=== PATIENT | female | born 1980 | race Caucasian/White ===

== ENCOUNTER 2016-08-30 07:43 | Emergency (ER) | payer BC ==
[2016-08-30] MEDS ORDERED: Sodium Chloride 0.9% 2.5 ML Syringe FLUSH PRN (07:53)
[2016-08-30] MEDS ORDERED: Alum Hydrox/Mag Hydrox/Simeth 15 ML, Metoclopramide 5 MG, Lidocaine 2% 5 ML PO ONE ×3 (07:53)
[2016-08-30] MEDS ORDERED: Sodium Chloride 0.9% 10 ML Syringe FLUSH PRN (07:53)
--- NOTE | 2016-08-30 07:53 | EDM.PDOC ---
ED HPI GENERAL MEDICAL PROBLEM - General Stated Complaint: STOMACH PAINS Time Seen by Provider: 08/30/16 07:50 - History of Present Illness INITIAL COMMENTS - FREE TEXT/NARRATIVE: HISTORY AND PHYSICAL: History of present illness: Patient 35-year-old female no significant past medical history or sensory concern of acute onset upper abdominal pain started 5 hours prior to arrival to the no vomiting no diarrhea no shortness of breath no fever chills she denies prior surgery denies any medications. Patient denies trauma. Denies vaginal discharge or irregular bleeding or urinary symptoms Review of systems: As per history of present illness and below otherwise all systems reviewed and negative. Past medical history: As per history of present illness and as reviewed below otherwise noncontributory. Surgical history: As per history of present illness and as reviewed below otherwise noncontributory. Social history: No reported history of drug or alcohol abuse. Family history: As per history of present illness and as reviewed below otherwise noncontributory. Physical exam: HEENT: Atraumatic, normocephalic, pupils reactive, negative for conjunctival pallor or scleral icterus, mucous membranes moist, throat clear, neck supple, nontender, trachea midline. Lungs: Clear to auscultation, breath sounds equal bilaterally, chest nontender. Heart: S1S2, regular, negative for clicks, rubs, or JVD. Abdomen: Soft, nondistended, no localized tenderness no rebound no guarding Negative for masses or hepatosplenomegaly. Negative for costovertebral tenderness. Pelvis: Stable nontender. Genitourinary: Deferred. Rectal: Deferred. Extremities: Atraumatic, negative for cords or calf pain. Neurovascular unremarkable. Neuro: Awake, alert, oriented. Cranial nerves II through XII unremarkable. Cerebellum unremarkable. Motor and sensory unremarkable throughout. Exam nonfocal. Diagnostics: CBC CMP lipase UA hCG EKG CT abdomen and pelvis chest x-ray Therapeutics: GI cocktail Impression: #1 abdominal pain Definitive disposition and diagnosis as appropriate pending reevaluation and review of above. - Related Data Allergies Allergy/AdvReac Type Severity Reaction Status Date / Time Penicillins Allergy Shortness Verified 08/30/16 07:57 of Breath Home Meds: Home Meds Hydrocodone/Acetaminophen [Hydrocodon-Acetaminophen 5-325] 1 each PO QID PRN [History] Social & Family History - Tobacco Use Smoking Status *Q: Current Some Day Smoker Years of Tobacco use: 15 Used Tobacco, but Quit: No - Alcohol Use Days Per Week of Alcohol Use: 1 Number of Drinks Per Day: 1 Total Drinks Per Week: 1 - Recreational Drug Use Recreational Drug Use: No ED ROS GENERAL - Review of Systems Review Of Systems: ROS reveals no pertinent complaints other than HPI. ED EXAM, GENERAL - Physical Exam Exam: See Below (See dictation) Course - Vital Signs Last Recorded V/S: Last Vital Signs Temp 36.3 C 08/30/16 07:57 Pulse 79 08/30/16 11:34 Resp 16 08/30/16 11:34 BP 132/79 08/30/16 11:34 Pulse Ox 98 08/30/16 11:34 - Orders/Labs/Meds Orders: Active Orders 24 hr Category Date Time Status EKG Documentation Completion [RC] STAT Care 08/30/16 07:55 Active Abdomen Ltd [US] Stat Exams 08/30/16 10:16 Taken Abdomen Pelvis w Cont [CT] Stat Exams 08/30/16 07:53 Taken Chest 1V Frontal [CR] Stat Exams 08/30/16 07:55 Taken Sodium Chloride 0.9% [Saline Flush] Med 08/30/16 07:53 Active 10 ml FLUSH ASDIRECTED PRN Sodium Chloride 0.9% [Saline Flush] Med 08/30/16 07:53 Active 2.5 ml FLUSH ASDIRECTED PRN Saline Lock Insert [OM.PC] Stat Oth 08/30/16 07:53 Ordered Medication Orders Sodium Chloride (Saline Flush) 10 ml FLUSH ASDIRECTED PRN PRN Reason: Keep Vein Open Last Admin: 08/30/16 08:53 Dose: 10 ml Sodium Chloride (Saline Flush) 2.5 ml FLUSH ASDIRECTED PRN PRN Reason: Keep Vein Open Labs: Laboratory Tests 08/30/16 08/30/16 08/30/16 Range/Units 07:53 07:53 08:07 WBC 9.63 (4.0-11.0) K/uL RBC 4.27 L (4.30-5.90) M/uL Hgb 13.4 (12.0-16.0) g/dL Hct 38.9 (36.0-46.0) % MCV 91.1 (80.0-98.0) fL MCH 31.4 (27.0-32.0) pg MCHC 34.4 (31.0-37.0) g/dL RDW Std Deviation 43.5 (28.0-62.0) fl RDW Coeff of Jaylen 13 (11.0-15.0) % Plt Count 236 (150-400) K/uL MPV 10.40 (7.40-12.00) fL Neut % (Auto) 55.3 (48.0-80.0) % Lymph % (Auto) 31.5 (16.0-40.0) % [place] % (Auto) 8.4 (0.0-15.0) % Eos % (Auto) 4.4 (0.0-7.0) % Baso % (Auto) 0.4 (0.0-1.5) % Neut # (Auto) 5.3 (1.4-5.7) K/uL Lymph # (Auto) 3.0 H (0.6-2.4) K/uL [place] # (Auto) 0.8 (0.0-0.8) K/uL Eos # (Auto) 0.4 (0.0-0.7) K/uL Baso # (Auto) 0.0 (0.0-0.1) K/uL Nucleated RBC % 0.0 /100WBC Nucleated RBCs # 0 K/uL Sodium (136-146) mmol/L Potassium (3.5-5.1) mmol/L Chloride (98-110) mmol/L Carbon Dioxide (21-31) mmol/L BUN (6.0-23.0) mg/dL Creatinine (0.6-1.5) mg/dL Est Cr Clr Drug Dosing mL/min Estimated GFR (MDRD) ml/min Glucose (60-110) mg/dL Calcium (8.8-10.8) mg/dL Total Bilirubin (0.1-1.5) mg/dL AST (5-40) IU/L ALT (8-54) IU/L Alkaline Phosphatase (40-150) Total Protein (6.0-8.0) g/dL Albumin (3.5-5.0) g/dL Globulin (2.0-3.5) g/dL Albumin/Globulin Ratio (1.3-2.8) Lipase (7-80) U/L Urine Color YELLOW Urine Appearance CLEAR Urine pH 5.5 (5.0-8.0) Ur Specific [place] 1.025 (1.001-1.035) Urine Protein NEGATIVE (NEGATIVE) mg/dL Urine Glucose (UA) NEGATIVE (NEGATIVE) mg/dL Urine Ketones NEGATIVE (NEGATIVE) mg/dL Urine Occult Blood SMALL H (NEGATIVE) Urine Nitrite NEGATIVE (NEGATIVE) Urine Bilirubin NEGATIVE (NEGATIVE) Urine Urobilinogen 0.2 (<2.0) EU/dL Ur Leukocyte Esterase SMALL (NEGATIVE) Urine RBC 0-2 (0-2/HPF) Urine WBC 3-5 (0-5/HPF) Ur Epithelial Cells MANY (NONE-FEW) Urine Bacteria FEW (NEGATIVE) Urine Mucus LIGHT (NONE-MOD) Urine HCG, Qual NEGATIVE (NEGATIVE) 08/30/16 Range/Units 08:07 WBC (4.0-11.0) K/uL RBC (4.30-5.90) M/uL Hgb (12.0-16.0) g/dL Hct (36.0-46.0) % MCV (80.0-98.0) fL MCH (27.0-32.0) pg MCHC (31.0-37.0) g/dL RDW Std Deviation (28.0-62.0) fl RDW Coeff of Jaylen (11.0-15.0) % Plt Count (150-400) K/uL MPV (7.40-12.00) fL Neut % (Auto) (48.0-80.0) % Lymph % (Auto) (16.0-40.0) % [place] % (Auto) (0.0-15.0) % Eos % (Auto) (0.0-7.0) % Baso % (Auto) (0.0-1.5) % Neut # (Auto) (1.4-5.7) K/uL Lymph # (Auto) (0.6-2.4) K/uL [place] # (Auto) (0.0-0.8) K/uL Eos # (Auto) (0.0-0.7) K/uL Baso # (Auto) (0.0-0.1) K/uL Nucleated RBC % /100WBC Nucleated RBCs # K/uL Sodium 141 (136-146) mmol/L Potassium 3.6 (3.5-5.1) mmol/L Chloride 108 (98-110) mmol/L Carbon Dioxide 26 (21-31) mmol/L BUN 14 (6.0-23.0) mg/dL Creatinine 0.9 (0.6-1.5) mg/dL Est Cr Clr Drug Dosing 68.35 mL/min Estimated GFR (MDRD) > 60.0 ml/min Glucose 116 H (60-110) mg/dL Calcium 9.0 (8.8-10.8) mg/dL Total Bilirubin 0.4 (0.1-1.5) mg/dL AST 20 (5-40) IU/L ALT 36 (8-54) IU/L Alkaline Phosphatase 72 (40-150) Total Protein 6.9 (6.0-8.0) g/dL Albumin 3.9 (3.5-5.0) g/dL Globulin 3.0 (2.0-3.5) g/dL Albumin/Globulin Ratio 1.3 (1.3-2.8) Lipase 26 (7-80) U/L Urine Color Urine Appearance Urine pH (5.0-8.0) Ur Specific [place] (1.001-1.035) Urine Protein (NEGATIVE) mg/dL Urine Glucose (UA) (NEGATIVE) mg/dL Urine Ketones (NEGATIVE) mg/dL Urine Occult Blood (NEGATIVE) Urine Nitrite (NEGATIVE) Urine Bilirubin (NEGATIVE) Urine Urobilinogen (<2.0) EU/dL Ur Leukocyte Esterase (NEGATIVE) Urine RBC (0-2/HPF) Urine WBC (0-5/HPF) Ur Epithelial Cells (NONE-FEW) Urine Bacteria (NEGATIVE) Urine Mucus (NONE-MOD) Urine HCG, Qual (NEGATIVE) Meds: Medications Generic Name Dose Route Start Last Admin Trade Name Freq PRN Reason Stop Dose Admin Sodium Chloride 10 ml 08/30/16 07:53 08/30/16 08:53 Saline Flush FLUSH 10 ml ASDIRECTED PRN Administration Keep Vein Open Sodium Chloride 2.5 ml 08/30/16 07:53 Saline Flush FLUSH ASDIRECTED PRN Keep Vein Open Discontinued Medications Generic Name Dose Route Start Last Admin Trade Name Freq PRN Reason Stop Dose Admin Al Hydroxide/Mg Hydroxide 15 0 ml 08/30/16 07:53 07/15/17 08:03 ml/ Metoclopramide HCl 5 mg/ PO 08/30/16 07:54 1 each Lidocaine HCl 5 ml ONETIME ONE Administration Iopamidol 100 ml 08/30/16 09:15 Isovue-370 (76%) IVPUSH 08/30/16 09:16 ONETIME STA Ketorolac Tromethamine 30 mg 08/30/16 08:33 08/30/16 08:48 Toradol IVPUSH 08/30/16 08:34 30 mg ONETIME ONE Administration Departure - Departure Time of Disposition: 11:40 Disposition: Home, Self-Care 01 Condition: Good Clinical Impression: Cholelithiasis, Biliary colic - Discharge Information Referrals: Taylor Jefferson DO [Primary Care Provider] - Additional Instructions: The following information is given to patients seen in the emergency department who are being discharged to home. This information is to outline your options for follow-up care. We provide all patients seen in our emergency department with a follow-up referral. The need for follow-up, as well as the timing and circumstances, are variable depending upon the specifics of your emergency department visit. If you don't have a primary care physician on staff, we will provide you with a referral. We always advise you to contact your personal physician following an emergency department visit to inform them of the circumstance of the visit and for follow-up with them and/or the need for any referrals to a consulting specialist. The emergency department will also refer you to a specialist when appropriate. This referral assures that you have the opportunity for followup care with a specialist. All of these measure are taken in an effort to provide you with optimal care, which includes your followup. Under all circumstances we always encourage you to contact your private physician who remains a resource for coordinating your care. When calling for followup care, please make the office aware that this follow-up is from your recent emergency room visit. If for any reason you are refused follow-up, please contact the [facility] emergency department at and asked to speak to the emergency department charge nurse. [facility] Specialty Care - General Surgery Professional Building [address] [place] [address], [address] [place] [address] Diet as discussed hydrocodone as prescribed call schedule routine appointment with primary medical doctor in general surgery above return as needed as discussed] - My Orders Last 24 Hours: My Active Orders 08/30/16 07:53 Abdomen Pelvis w Cont [CT] Stat Sodium Chloride 0.9% [Saline Flush] 10 ml FLUSH ASDIRECTED PRN Sodium Chloride 0.9% [Saline Flush] 2.5 ml FLUSH ASDIRECTED PRN Saline Lock Insert [OM.PC] Stat 08/30/16 07:55 EKG Documentation Completion [RC] STAT Chest 1V Frontal [CR] Stat 08/30/16 10:16 Abdomen Ltd [US] Stat - Assessment/Plan Last 24 Hours: My Active Orders 08/30/16 07:53 Abdomen Pelvis w Cont [CT] Stat Sodium Chloride 0.9% [Saline Flush] 10 ml FLUSH ASDIRECTED PRN Sodium Chloride 0.9% [Saline Flush] 2.5 ml FLUSH ASDIRECTED PRN Saline Lock Insert [OM.PC] Stat 08/30/16 07:55 EKG Documentation Completion [RC] STAT Chest 1V Frontal [CR] Stat 08/30/16 10:16 Abdomen Ltd [US] Stat
[2016-08-30 08:30] LABS: CHLORIDE,CL 108 mmol/L (98-110); SODIUM,NA 141 mmol/L (136-146)
[2016-08-30] MEDS ORDERED: Ketorolac 30 MG/ML SDV IVPUSH ONE (08:33)
[2016-08-30] MEDS ORDERED: Iopamidol 755 Mg/ML 100 ML Bottle IVPUSH STA (09:15)
[2016-08-30 12:37] VITALS: BP 136/85
--- NOTE | 2016-09-01 11:17 | CT ---
EXAM DATE: 08/30/16 PATIENT'S AGE: 35 Patient: GRETTA MACIAS Facility: [place], [place] Site . Site : 1980 Study: CT Abdomen/Pelvis [id number]/15/2017 9:49:24 AM Ordering Physician: Yuriy Mendiola Final Report: INDICATION: Abdominal pain and nausea. Technique: CT scan of the abdomen and pelvis. IV contrast. Findings: Lung bases are clear. Cholesterol gallstones are present. Small nonobstructing calcification in the lower pole right kidney. Axial series image 73. No hydronephrosis. Left kidney unremarkable. The bladder is unremarkable. Uterus is normal size. IUD is present. Bilateral ovarian cysts. Right ovarian cyst 2.5 cm. Left ovarian cyst 5.2 cm. The left ovarian cyst may have an internal daughter cyst. No free fluid in the pelvis. Moderate amount of retained colonic stool. Spleen, pancreas, and adrenal glands appear normal. The lung bases are clear. There is moderate lumbar scoliosis that is convex to the left. IMPRESSION: 1. Gallstones. Consider ultrasound evaluation. The bile ducts appear normal caliber. 2. Bilateral ovarian cysts. Consider pelvic ultrasound evaluation. 3. Intrauterine IUD. Please note that all CT scans at this facility use dose modulation, iterative reconstruction, and/or weight-based dosing when appropriate to reduce radiation dose to as low as reasonably achievable. Dictated by Saul Cloud MD @ Aug 30 2016 9:55AM (Electronic Signature) Report Signed by Proxy. MTDD
--- NOTE | 2016-09-01 11:18 | CR ---
EXAM DATE: 08/30/16 PATIENT'S AGE: 35 Patient: GRETTA MACIAS Facility: [place], [place] Site . Site : 1980 Study: XRay Chest [id number]/15/2017 10:12:29 AM Ordering Physician: Yuriy Mendiola Final Report: INDICATION: Cough. Technique: Chest single view. IMPRESSION: Lungs are clear. No pleural effusions or pneumothorax. Heart size is normal. Dictated by Saul Cloud MD @ Aug 30 2016 10:18AM (Electronic Signature) Report Signed by Proxy. [facility]ENTER[facility]
--- NOTE | 2016-09-01 11:19 | US ---
EXAM DATE: 08/30/16 PATIENT'S AGE: 35 Patient: GRETTA MACIAS Facility: [place], [place] Site . Site : 1980 Study: US Abdomen [id number]/15/2017 11:54:25 AM Ordering Physician: Yuriy Mendiola Final Report: HISTORY: Upper abdominal pain. TECHNIQUE: Limited abdominal ultrasound. COMPARISON: CT 08/30/2016. FINDINGS: Pancreas is poorly seen. Liver size and echogenicity are within normal limits. There is no focal liver mass. No intrahepatic or extrahepatic biliary ductal dilatation. The extrahepatic bile duct measures 4 mm which is normal. Gallstones. Gallbladder wall thickness is within normal limits measuring 3 mm. The gallbladder measures under 4 cm luminal diameter. No surrounding fluid. Per the rad technologist, the patient was tender over the gallbladder during scanning. Right kidney appears unremarkable. IMPRESSION: 1. Gallstones without gallbladder wall thickening or pericholecystic fluid. Per the rad technologist, the patient was tender over the gallbladder during scanning. 2. No biliary ductal dilatation. Dictated by Arpit Rivers MD @ 08/30/2016 12:13:40 PM Dictated by: Arpit Rivers MD @ 08/30/2016 12:13:44 (Electronic Signature) Report Signed by Proxy. ROBERTO
== END 2016-08-30 12:34 | disposition home or self-care (01) ==
LOC: MW.ED 07:43
DX: K80.70 Calculus of gallbladder and bile duct without cholecystitis without obstruction (principal); F17.210 Nicotine dependence, cigarettes, uncomplicated; Z88.0 Allergy status to penicillin
CPT/HCPCS: 36415; 71010; 74177; 76705; 80053; 81001; 81025; 83690; 85025; 93005; 96374; 99285; A9270; J1885; 99284

== ENCOUNTER 2016-09-07 11:39 | Emergency (ER) | payer BC ==
[2016-09-07] MEDS ORDERED: Dicyclomine 10 MG Cap PO ONE (11:58)
[2016-09-07] MEDS ORDERED: Ketorolac 60 MG/2 ML SDV IM ONE (11:58)
[2016-09-07] MEDS ORDERED: Ondansetron 4 MG Tab.DIS PO ONE (12:04)
--- NOTE | 2016-09-07 12:04 | EDM.PDOC ---
ED HPI GENERAL MEDICAL PROBLEM - General Chief Complaint: Abdominal Pain Stated Complaint: ABDOMINAL PAIN Time Seen by Provider: 09/07/16 11:44 Source of Information: Reports: Patient History Limitations: Reports: No Limitations - History of Present Illness INITIAL COMMENTS - FREE TEXT/NARRATIVE: History of present illness: [] Review of systems: As per history of present illness and below otherwise all systems reviewed and negative. Patient was diagnosed with cholelithiasis week and a half ago and followed up with Dr. Lynch 2 days ago. Last night she states she ate a salad and 2 hours later her pain started cramping again. Dr. Lynch gave her hydrocodone she took but did not work. She denies any fevers, chills but she has had nausea and vomited twice small amount of spit. Past medical history: As per history of present illness and as reviewed below otherwise noncontributory. Surgical history: As per history of present illness and as reviewed below otherwise noncontributory. Social history: No reported history of drug or alcohol abuse. Family history: As per history of present illness and as reviewed below otherwise noncontributory. Physical exam: General: Well developed, well nourished in NAD HEENT: Atraumatic, normocephalic, pupils reactive, negative for conjunctival pallor or scleral icterus, mucous membranes moist, throat clear, neck supple, nontender, trachea midline. Lungs: Clear to auscultation, breath sounds equal bilaterally, chest nontender. Heart: S1S2, regular, negative for clicks, rubs, or JVD. Abdomen: Soft, nondistended, mild right upper quadrant tenderness no rebound or guarding. Negative for masses or hepatosplenomegaly. Negative for costovertebral tenderness. Pelvis: Stable nontender. Genitourinary: Deferred. Rectal: Deferred. Extremities: Atraumatic, negative for cords or calf pain. Neurovascular unremarkable. Neuro: Awake, alert, oriented. Cranial nerves II through XII unremarkable. Cerebellum unremarkable. Motor and sensory unremarkable throughout. Exam nonfocal. Diagnostics: [] Therapeutics: []Bentyl Toradol Zofran given Impression: []Cholelithiasis Plan: []Bentyl, Zofran for nausea and pain any fatty foods follow-up with surgery as needed Definitive disposition and diagnosis as appropriate pending reevaluation and review of above. Upper Abdomen Pain Score (Numeric/FACES): 7 - Related Data Allergies Allergy/AdvReac Type Severity Reaction Status Date / Time Penicillins Allergy Shortness Verified 09/07/16 11:54 of Breath Home Meds: Home Meds Hydrocodone/Acetaminophen [Hydrocodon-Acetaminophen 5-325] 1 each PO QID PRN [History] Dicyclomine [Bentyl] 20 mg PO TID PRN #20 tab 09/07/16 [Rx] Ondansetron HCl [Zofran] 4 mg PO Q8HR PRN #12 tablet 09/07/16 [Rx] Past Medical History - Infectious Disease History Infectious Disease History: Reports: Chicken Pox - Past Surgical History GI Surgical History: Reports: Appendectomy, Other (See Below) Other GI Surgeries/Procedures: exploratory lap Female Surgical History: Reports: Section Social & Family History - Family History Family Medical History: Noncontributory - Tobacco Use Smoking Status *Q: Current Some Day Smoker Years of Tobacco use: 15 Packs/Tins Daily: 0.3 Used Tobacco, but Quit: No - Caffeine Use Caffeine Use: Reports: None - Alcohol Use Days Per Week of Alcohol Use: 1 Number of Drinks Per Day: 1 Total Drinks Per Week: 1 - Recreational Drug Use Recreational Drug Use: No ED ROS GENERAL - Review of Systems Review Of Systems: See Below (See history of present illness) ED EXAM, GI/ABD - Physical Exam Exam: See Below (See history of present illness) Course - Vital Signs Last Recorded V/S: Last Vital Signs Temp 36.2 C 09/07/16 11:54 Pulse 88 09/07/16 11:54 Resp 18 09/07/16 11:54 BP 141/95 H 09/07/16 11:54 Pulse Ox 98 09/07/16 11:54 - Orders/Labs/Meds Meds: Medications Discontinued Medications Generic Name Dose Route Start Last Admin Trade Name Freq PRN Reason Stop Dose Admin Dicyclomine HCl 10 mg 09/07/16 11:58 Bentyl PO 09/07/16 11:59 ONETIME ONE Ketorolac Tromethamine 60 mg 09/07/16 11:58 Toradol IM 09/07/16 11:59 ONETIME ONE Ondansetron HCl 4 mg 09/07/16 12:04 Zofran Odt PO 09/07/16 12:05 ONETIME ONE Departure - Departure Time of Disposition: 12:10 Disposition: Home, Self-Care 01 Condition: Good Clinical Impression: Cholelithiasis Qualifiers: Cholelithiasis location: gallbladder Cholecystitis presence: without cholecystitis Biliary obstruction: with biliary obstruction Qualified Code(s): K80.21 - Calculus of gallbladder without cholecystitis with obstruction - Discharge Information Prescriptions: Ondansetron HCl [Zofran] 4 mg PO Q8HR PRN #12 tablet PRN Reason: Nausea Dicyclomine [Bentyl] 20 mg PO TID PRN #20 tab PRN Reason: Pain Forms: ED Department Discharge Additional Instructions: The following information is given to patients seen in the emergency department who are being discharged to home. This information is to outline your options for follow-up care. We provide all patients seen in our emergency department with a follow-up referral. The need for follow-up, as well as the timing and circumstances, are variable depending upon the specifics of your emergency department visit. If you don't have a primary care physician on staff, we will provide you with a referral. We always advise you to contact your personal physician following an emergency department visit to inform them of the circumstance of the visit and for follow-up with them and/or the need for any referrals to a consulting specialist. The emergency department will also refer you to a specialist when appropriate. This referral assures that you have the opportunity for follow-up care with a specialist. All of these measure are taken in an effort to provide you with optimal care, which includes your follow-up. Under all circumstances we always encourage you to contact your private physician who remains a resource for coordinating your care. When calling for follow-up care, please make the office aware that this follow-up is from your recent emergency room visit. If for any reason you are refused follow-up, please contact the [facility] Emergency Department at and asked to speak to the emergency department charge nurse. Bentyl for pain and Zofran for nausea not eat any fatty foods as this may worsen her gallbladder pain follow-up with general surgery [facility] Specialty Care - General Surgery Professional Building [address] [place] [address], [address] [place] [address]
[2016-09-07 12:39] VITALS: BP 147/94
== END 2016-09-07 12:38 | disposition home or self-care (01) ==
LOC: MW.ED 11:39
DX: K80.21 Calculus of gallbladder without cholecystitis with obstruction (principal); F17.210 Nicotine dependence, cigarettes, uncomplicated; Z88.0 Allergy status to penicillin; Z90.49 Acquired absence of other specified parts of digestive tract
CPT/HCPCS: 96372; 99284; A9270; J1885

== ENCOUNTER 2016-09-19 07:57 | Day surgery (SDC) | payer BC ==
[~2016-09-19 07:57] MED LIST: Bupivacaine 0.5% 30 ML SDV ONE; Lactated Ringers 1,000 ML IV SCH; ceFAZolin 1 GM Vial ONE; cefOXitin 2 GM in Premix Bag 1 BAG IV ONE
[2016-09-19] MEDS ORDERED: Midazolam 1 MG/ML 2 ML SDV ONE (08:15)
[2016-09-19] MEDS ORDERED: Propofol 200 MG/20 ML SDV ONE (08:15)
[2016-09-19] MEDS ORDERED: fentaNYL 250 MCG/5 ML SDV ONE (08:16)
[2016-09-19] MEDS ORDERED: Dexamethasone 4 MG/ML 5 ML MDV ONE (08:20)
[2016-09-19] MEDS ORDERED: Neostigmine Methylsulfate 1 MG/ML 5 ML Syringe ONE (08:20)
[2016-09-19] MEDS ORDERED: Rocuronium 10 MG/ML 10 ML Syringe ONE (08:20)
[2016-09-19] MEDS ORDERED: Ondansetron 4 MG/2 ML SDV ONE (08:20)
[2016-09-19] MEDS ORDERED: Scopolamine 1.5 MG Transdermal Patch TRDERM PRN (08:32)
--- NOTE | 2016-09-19 08:32 | PCM.PREANE ---
Preanesthetic Assessment - Anesthesia/Transfusion/Family Hx Anesthesia History: Prior Anesthesia Without Reaction Family History of Anesthesia Reaction: No Transfusion History: Prior Transfusion Without Reaction Intubation History: Unknown - Review of Systems General: No Symptoms Pulmonary: No Symptoms Cardiovascular: No Symptoms Gastrointestinal: Other (symptomatic cholelithiasis) Neurological: No Symptoms Other: Reports: None - Physical Assessment O2 Sat by Pulse Oximetry: 99 Respiratory Rate: 16 Vital Signs: Last Vital Signs Temp 36.5 C 09/19/16 08:09 Pulse 76 09/19/16 08:09 Resp 16 09/19/16 08:09 BP 136/83 09/19/16 08:09 Pulse Ox 99 09/19/16 08:09 Height: 1.57 m Weight: 87.8 kg ASA Class: 2 Mental Status: Alert & Oriented x3 Airway Class: Mallampati = 2 Dentition: Reports: Normal Dentition Thyro-Mental Finger Breadths: 3 Mouth Opening Finger Breadths: 2 ROM/Head Extension: Full Lungs: Clear to Auscultation, Normal Respiratory Effort Cardiovascular: Regular Rate, Regular Rhythm - Lab Values: Laboratory Last Values Urine HCG, Qual NEGATIVE (NEGATIVE) 09/19/16 08:01 - Allergies Allergies/Adverse Reactions: Allergies Allergy/AdvReac Type Severity Reaction Status Date / Time Penicillins Allergy Shortness Verified 09/07/16 11:54 of Breath - Blood Blood Available: No - Anesthesia Plan Pre-Op Medication Ordered: None - Acknowledgements Anesthesia Type Planned: General Anesthesia Pt an Appropriate Candidate for the Planned Anesthesia: Yes Alternatives and Risks of Anesthesia Discussed w Pt/Guardian: Yes Pt/Guardian Understands and Agrees with Anesthesia Plan: Yes PreAnesthesia Questionnaire Other HEENT History: wears glasses Gastrointestinal History: Reports: Cholelithiasis Genitourinary History: Reports: None 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: Endocrine/Metabolic History: Reports: Obesity/BMI 30+ Hematologic History: Reports: Blood Transfusion(s) - Infectious Disease History Infectious Disease History: Reports: Chicken Pox - Past Surgical History Head Surgeries/Procedures: Reports: None GI Surgical History: Reports: Appendectomy, Other (See Below) Other GI Surgeries/Procedures: exploratory lap for ruptured appedicitis Female Surgical History: Reports: Section (x2) - SUBSTANCE USE Smoking Status *Q: Current Every Day Smoker Tobacco Use Within Last Twelve Months: Cigarettes (now 1/4 ppd) Days Per Week of Alcohol Use: 1 Number of Drinks Per Day: 1 Total Drinks Per Week: 1 Recreational Drug Use History: No - HOME MEDS Home Medications: Home Meds Hydrocodone/Acetaminophen [Hydrocodon-Acetaminophen 5-325] 1 each PO QID PRN [History] Ondansetron HCl [Zofran] 4 mg PO Q8HR PRN #12 tablet 09/07/16 [Rx] Cetirizine [ZyrTEC] 10 mg PO ASDIRECTED PRN 09/16/16 [History] Dicyclomine [Bentyl] 20 mg PO ASDIRECTED PRN 09/16/16 [History] - CURRENT (IN HOUSE) MEDS Current Meds: Current Medications Lactated Ringer's (Ringers, Lactated) 1,000 mls @ 125 mls/hr IV ASDIRECTED KEMAR Last Admin: 09/19/16 08:14 Dose: 125 mls/hr Discontinued Medications Bupivacaine HCl (Marcaine 0.5%) Confirm Administered Dose 30 ml .ROUTE .STK-MED ONE Stop: 09/19/16 06:56 Cefazolin Sodium (Ancef) Confirm Administered Dose 1 gm .ROUTE .STK-MED ONE Stop: 09/19/16 06:56 Cefazolin Sodium (Ancef) Confirm Administered Dose 1 gm .ROUTE .STK-MED ONE Stop: 09/19/16 07:01 Dexamethasone (Dexamethasone) Confirm Administered Dose 20 mg .ROUTE .STK-MED ONE Stop: 09/19/16 08:21 Fentanyl (Sublimaze) Confirm Administered Dose 250 mcg .ROUTE .STK-MED ONE Stop: 09/19/16 08:17 Glycopyrrolate () Confirm Administered Dose 1 mg .ROUTE .STK-MED ONE Stop: 09/19/16 08:21 Cefoxitin Sodium 2 gm/ Premix 50 mls @ 100 mls/hr IV ONETIME ONE Stop: 09/19/16 07:29 Lidocaine HCl (Xylocaine-Mpf 1%) Confirm Administered Dose 5 ml .ROUTE .STK-MED ONE Stop: 09/19/16 08:21 Midazolam HCl (Versed 1 Mg/Ml) Confirm Administered Dose 2 mg .ROUTE .STK-MED ONE Stop: 09/19/16 08:16 Neostigmine Methylsulfate (Neostigmine) Confirm Administered Dose 5 mg .ROUTE .STK-MED ONE Stop: 09/19/16 08:21 Ondansetron HCl (Zofran) Confirm Administered Dose 4 mg .ROUTE .STK-MED ONE Stop: 09/19/16 08:21 Propofol (Diprivan 20 Ml) Confirm Administered Dose 200 mg .ROUTE .STK-MED ONE Stop: 09/19/16 08:16 Rocuronium [place] (Zemuron) Confirm Administered Dose 100 mg .ROUTE .STK-MED ONE Stop: 09/19/16 08:21
[2016-09-19] MEDS ORDERED: Bupivacaine 0.5% 10 ML SDV ONE (09:31)
[2016-09-19] MEDS ORDERED: Phenylephrine/Normal Saline 100 MCG/ML 10 ML Syringe ONE (10:21)
[2016-09-19] MEDS ORDERED: Ketorolac 30 MG/ML SDV ONE (10:48)
[2016-09-19] MEDS ORDERED: fentaNYL 100 MCG/2 ML SDV ONE (11:02)
[2016-09-19] MEDS ORDERED: Morphine 10 MG/ML Syringe IVPUSH PRN (11:14)
[2016-09-19] MEDS ORDERED: Acetaminophen/HYDROcodone 325-5 MG Tab PO PRN (11:14)
[2016-09-19] MEDS ORDERED: Lactated Ringers 1,000 ML IV SCH (11:15)
[2016-09-19] MEDS ORDERED: HYDROmorphone 1 MG/ML Syringe IVPUSH ONE (11:15)
--- NOTE | 2016-09-19 11:17 | PCM.OPNOTE ---
- General Post-Op/Procedure Note Date of Surgery/Procedure: 09/19/16 Operative Procedure(s): Laparoscopic cholecystectomy Pre Op Diagnosis: Cholelithiasis Post-Op Diagnosis: Same Anesthesia Technique: General ET Tube (ASA II) Primary Surgeon: Ronald Foster Fluid Replacement, Intraop: 1,100 Output, Urine Amount: 100 EBL in mLs: 50 Condition: Good Free Text/Narrative:: Dictation [id number] CPT CODE 28829
[2016-09-19] MEDS ORDERED: HYDROmorphone 2 MG/ML Syringe ONE (11:23)
--- NOTE | 2016-09-19 11:42 | PCM.POSTAN ---
POST ANESTHESIA ASSESSMENT - MENTAL STATUS Mental Status: Alert, Oriented - RESPIRATORY Respiratory Status: Respiratory Rate WNL, Airway Patent, O2 Saturation Stable - CARDIOVASCULAR CV Status: Pulse Rate WNL, Blood Pressure Stable - GASTROINTESTINAL GI Status: No Symptoms - PAIN Pain Score: 2 - POST OP HYDRATION Hydration Status: Adequate & Stable - OBSERVATIONS Free Text/Narrative:: no anesthesia problems
--- NOTE | 2016-09-19 11:42 | OR ---
SURGEON: Ronald Foster M.D. DATE OF PROCEDURE: 09/19/2016 OPERATION PERFORMED: Laparoscopic cholecystectomy. ANESTHESIA: General endotracheal. ASA CLASSIFICATION: II. PREOPERATIVE DIAGNOSIS: Symptomatic cholelithiasis. POSTOPERATIVE DIAGNOSIS: Symptomatic cholelithiasis. ESTIMATED BLOOD LOSS: 50 mL. FLUID REPLACEMENT: 1100 mL of crystalloid. INTRAOPERATIVE URINE OUTPUT: 100 mL. DESCRIPTION OF PROCEDURE: The patient was taken to the operating room, placed on the operating table in the supine position. Time-out was called for appropriate identification of the patient and procedure. Thigh-high TEDs and sequential compression boots were placed. Following satisfactory attainment of general endotracheal anesthesia, a Apple catheter was placed in the patient's urinary bladder. The abdomen was prepped with DuraPrep solution. Sterile drapes were applied. The skin just above the umbilicus was infiltrated with 0.5% Marcaine solution. The skin incision was made and deepened through the subcutaneous tissue obtaining hemostasis with the use of electrocautery. The Veress needle was introduced into the peritoneal cavity. The saline drop test was positive. Carbon dioxide pneumoperitoneum was established with the release set at 13 cm of water. Once we had a satisfactory pneumoperitoneum, under camera vision 12 mm subxiphoid, 5 mm midclavicular, and 5 mm anterior axillary ports were placed. Each incision was preemptively infiltrated with 0.5% Marcaine solution. The patient was now positioned with her head down and rolled to the left. The gallbladder was grasped. The cholecystohepatic triangle was dissected free obtaining a good critical view of both the cystic duct and cystic artery. Each structure was individually hemo-clipped before division with the laparoscopic Metzenbaum scissor. The gallbladder was then dissected away from its bed using electrocautery. A small amount of bile was spilled. The right upper quadrant was irrigated with sterile saline solution. All fluid was aspirated. Minimal oozing was noted from the gallbladder. Once gallbladder was amputated, this was placed in an Endopouch. The bed of the gallbladder was again irrigated with sterile saline solution. Avitene and Surgicel were placed into the bed of the gallbladder. The right hemidiaphragm was then irrigated with 200 mL of saline with 20 mL of 0.5% Marcaine solution. Under camera vision, the Endopouch containing gallbladder and 12 mm port were removed. Again, under camera vision the 5 mm midclavicular, and anterior axillary ports were removed and finally, the supraumbilical camera and port were removed. The wounds were inspected for hemostasis and small bleeding sites were electrocoagulated. The subxiphoid and supraumbilical incisions were closed in 2 layers approximating the subcutaneous tissue with 3-0 Polysorb and the skin with subcuticular 4-0 Monocryl. All wounds were Steri-Stripped and dressed with sterile Tegaderm pads. Sponge, needle, and instrument counts were all correct. The patient tolerated the procedure well. Prior to emergence from anesthesia and extubation, the Apple catheter was removed. Following emergence from anesthesia and extubation, the patient was taken to recovery room in stable condition. FREEDOM SCHULTZ /[id number]
[2016-09-19 13:47] VITALS: BP 119/64
== END 2016-09-19 14:51 | disposition home or self-care (01) ==
LOC: MW.SDS 07:57
PROVIDERS: ATTEND Surgery
PROC: 0FT44ZZ Resection of Gallbladder, Percutaneous Endoscopic Approach (ICD-10-PCS; principal; 2016-09-19)
DX: K80.10 Calculus of gallbladder with chronic cholecystitis without obstruction (principal); F17.210 Nicotine dependence, cigarettes, uncomplicated; E66.9 Obesity, unspecified; Z88.0 Allergy status to penicillin; Z90.49 Acquired absence of other specified parts of digestive tract; Z98.890 Other specified postprocedural states; Z68.35 Body mass index [BMI] 35.0-35.9, adult
CPT/HCPCS: 47562; 81025; A9270; J0690; J1100; J1170; J1885; J2250; J2405; J3010; J7120; 00790; 88304; J2704

== ENCOUNTER 2017-02-21 07:02 | Emergency (ER) | payer BC ==
[2017-02-21] MEDS ORDERED: Ondansetron 4 MG Tab.DIS PO ONE (07:24)
[2017-02-21] MEDS ORDERED: Ketorolac 60 MG/2 ML SDV IM ONE (07:24)
--- NOTE | 2017-02-21 07:26 | EDM.PDOC ---
ED HPI GENERAL MEDICAL PROBLEM - General Chief Complaint: Gastrointestinal Problem Stated Complaint: FLU Time Seen by Provider: 02/21/17 07:08 Source of Information: Reports: Patient History Limitations: Reports: No Limitations - History of Present Illness INITIAL COMMENTS - FREE TEXT/NARRATIVE: History of present illness: []Patient's had one day of cold symptoms with runny nose, sore throat, cough, body aches and vomiting. His vomit approximately 5-6 times since it started 24 hours ago. Denies any diarrhea. Review of systems: As per history of present illness and below otherwise all systems reviewed and negative. Past medical history: As per history of present illness and as reviewed below otherwise noncontributory. Surgical history: As per history of present illness and as reviewed below otherwise noncontributory. Social history: No reported history of drug or alcohol abuse. Family history: As per history of present illness and as reviewed below otherwise noncontributory. Physical exam: General: Well developed, well nourished in NAD HEENT: Atraumatic, normocephalic, pupils reactive, negative for conjunctival pallor or scleral icterus, mucous membranes moist, throat clear, neck supple, nontender, trachea midline. Lungs: Clear to auscultation, breath sounds equal bilaterally, chest nontender. Heart: S1S2, regular, negative for clicks, rubs, or JVD. Abdomen: Soft, nondistended, nontender. Negative for masses or hepatosplenomegaly. Negative for costovertebral tenderness. Pelvis: Stable nontender. Genitourinary: Deferred. Rectal: Deferred. Extremities: Atraumatic, negative for cords or calf pain. Neurovascular unremarkable. Neuro: Awake, alert, oriented. Cranial nerves II through XII unremarkable. Cerebellum unremarkable. Motor and sensory unremarkable throughout. Exam nonfocal. Diagnostics: []Strep and influenza negative Therapeutics: []Zofran Toradol given in the ED Impression: []Viral syndrome Plan: []Tylenol and or Motrin for symptoms follow-up PMD as needed, Zofran for nausea. Return if symptoms worsen or change. Definitive disposition and diagnosis as appropriate pending reevaluation and review of above. 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: Endocrine/Metabolic History: Reports: Obesity/BMI 30+ Hematologic History: Reports: Blood Transfusion(s) - Infectious Disease History Infectious Disease History: Reports: Chicken Pox - Past Surgical History Head Surgeries/Procedures: Reports: None GI Surgical History: Reports: Appendectomy, Other (See Below) Other GI Surgeries/Procedures: exploratory lap for ruptured appedicitis Female Surgical History: Reports: Section (x2) Social & Family History - Family History Family Medical History: Noncontributory - Tobacco Use Smoking Status *Q: Current Every Day Smoker Years of Tobacco use: 15 Packs/Tins Daily: 0.3 Used Tobacco, but Quit: No - Caffeine Use Caffeine Use: Reports: None - Alcohol Use Days Per Week of Alcohol Use: 1 Number of Drinks Per Day: 1 Total Drinks Per Week: 1 - Recreational Drug Use Recreational Drug Use: No ED ROS GENERAL - Review of Systems Review Of Systems: See Below (See history of present illness) ED EXAM, GENERAL - Physical Exam Exam: See Below (See history of present illness) Course - Vital Signs Last Recorded V/S: Last Vital Signs Temp 99.6 F 02/21/17 07:21 Pulse 91 02/21/17 07:21 Resp 16 02/21/17 07:21 BP 145/87 H 02/21/17 07:21 Pulse Ox 97 02/21/17 07:21 - Orders/Labs/Meds Orders: Active Orders 24 hr Category Date Time Status CULTURE STREP A CONFIRMATION [RM] Stat Lab 02/21/17 07:45 Results HCG QUALITATIVE,URINE [URCHEM] Stat Lab 02/21/17 07:53 Received STREP SCRN A RAPID W CULT CONF [RM] Stat Lab 02/21/17 07:45 Results Meds: Medications Discontinued Medications Generic Name Dose Route Start Last Admin Trade Name Freq PRN Reason Stop Dose Admin Ketorolac Tromethamine 60 mg 02/21/17 07:24 02/21/17 07:49 Toradol IM 02/21/17 07:25 60 mg ONETIME ONE Administration Ondansetron HCl 4 mg 02/21/17 07:24 02/21/17 07:43 Zofran Odt PO 02/21/17 07:25 4 mg ONETIME ONE Administration Departure - Departure Time of Disposition: 08:19 Disposition: Home, Self-Care 01 Condition: Good Clinical Impression: Viral syndrome - Discharge Information Referrals: Taylor Jefferson DO [Primary Care Provider] - Forms: ED Department Discharge Additional Instructions: The following information is given to patients seen in the emergency department who are being discharged to home. This information is to outline your options for follow-up care. We provide all patients seen in our emergency department with a follow-up referral. The need for follow-up, as well as the timing and circumstances, are variable depending upon the specifics of your emergency department visit. If you don't have a primary care physician on staff, we will provide you with a referral. We always advise you to contact your personal physician following an emergency department visit to inform them of the circumstance of the visit and for follow-up with them and/or the need for any referrals to a consulting specialist. The emergency department will also refer you to a specialist when appropriate. This referral assures that you have the opportunity for follow-up care with a specialist. All of these measure are taken in an effort to provide you with optimal care, which includes your follow-up. Under all circumstances we always encourage you to contact your private physician who remains a resource for coordinating your care. When calling for follow-up care, please make the office aware that this follow-up is from your recent emergency room visit. If for any reason you are refused follow-up, please contact the [facility] Department at and asked to speak to the emergency department charge nurse. Tylenol, Motrin, [id number] meds for symptomatically relief, Zofran for nausea, follow-up with primary care as needed or return here if symptoms worsen or change. [facility] [address] [place] [id number] - My Orders Last 24 Hours: My Active Orders 02/21/17 07:45 CULTURE STREP A CONFIRMATION [RM] Stat STREP SCRN A RAPID W CULT CONF [RM] Stat 02/21/17 07:53 HCG QUALITATIVE,URINE [URCHEM] Stat - Assessment/Plan Last 24 Hours: My Active Orders 02/21/17 07:45 CULTURE STREP A CONFIRMATION [RM] Stat STREP SCRN A RAPID W CULT CONF [RM] Stat 02/21/17 07:53 HCG QUALITATIVE,URINE [URCHEM] Stat
[2017-02-21 08:32] VITALS: BP 132/78
== END 2017-02-21 08:29 | disposition home or self-care (01) ==
LOC: MW.ED 07:02
DX: B34.9 Viral infection, unspecified (principal); F17.210 Nicotine dependence, cigarettes, uncomplicated; Z88.0 Allergy status to penicillin
CPT/HCPCS: 81025; 87081; 87804; 87880; 96372; 99283; A9270; J1885; 99282

== ENCOUNTER 2017-11-03 22:33 | Emergency (ER) | payer BC ==
[2017-11-03] MEDS ORDERED: Diphtheria,Pertussis(Acell),Tetanus Vaccine 0.5 ML Syringe IM ONE (22:50)
--- NOTE | 2017-11-03 22:57 | EDM.PDOC ---
ED HPI GENERAL MEDICAL PROBLEM - General Chief Complaint: Skin Complaint Stated Complaint: STEPPED ON A BILLY NAIL Time Seen by Provider: 11/03/17 22:45 - History of Present Illness INITIAL COMMENTS - FREE TEXT/NARRATIVE: HISTORY AND PHYSICAL: History of present illness: The patient is a 37-year-old female who was in her usual state of good health when she stepped on a billy nail in her home and she is doing a kitchen rehabilitation project. She was wearing rubber soled shoes and went through the shoe and into her foot. She has some localized pain to the left foot but otherwise has no other injuries. She is unsure of her last tetanus shot. She has no neurosensory changes in her foot and there is no active bleeding. Review of systems: As per history of present illness and below otherwise all systems reviewed and negative. Past medical history: As per history of present illness and as reviewed below otherwise noncontributory. Surgical history: As per history of present illness and as reviewed below otherwise noncontributory. Social history: No reported history of drug or alcohol abuse. Family history: As per history of present illness and as reviewed below otherwise noncontributory. Physical exam: General: Well-developed well-nourished female who is nontoxic and mildly overweight. Vital signs are noted by me HEENT: Atraumatic, normocephalic, negative for conjunctival pallor or scleral icterus, mucous membranes moist, throat clear, neck supple, nontender, trachea midline. Lungs: Clear to auscultation, breath sounds equal bilaterally, chest nontender. Heart: S1S2, regular rate and rhythm no overt murmurs Abdomen: Deferred Pelvis: Deferred Genitourinary: Deferred. Rectal: Deferred. Extremities: Atraumatic with full range of motion of all extremities with the exception of the left foot where on the sole near the mid foot there is a small puncture wound seen which is not bleeding not tender and not swollen or ecchymotic. There is no crepitus in the area and there are no palpable bony deformities. Are, negative for cords or calf pain. Neurovascular unremarkable. Neuro: Awake, alert, oriented. Cranial nerves II through XII unremarkable. Cerebellum unremarkable. Motor and sensory unremarkable throughout. Exam nonfocal. Diagnostics: [] Therapeutics: Tdap Impression: Puncture wound to left foot Definitive disposition and diagnosis as appropriate pending reevaluation and review of above. - Related Data Allergies Allergy/AdvReac Type Severity Reaction Status Date / Time Penicillins Allergy Shortness Verified 11/03/17 22:50 of Breath Home Meds: Home Meds . 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: Endocrine/Metabolic History: Reports: Obesity/BMI 30+ Hematologic History: Reports: Blood Transfusion(s) - Infectious Disease History Infectious Disease History: Reports: Chicken Pox - Past Surgical History Head Surgeries/Procedures: Reports: None GI Surgical History: Reports: Appendectomy, Other (See Below) Other GI Surgeries/Procedures: exploratory lap for ruptured appedicitis Female Surgical History: Reports: Section (x2) Social & Family History - Family History Family Medical History: Noncontributory - Caffeine Use Caffeine Use: Reports: None Caffeine Use Comment: 1 cup per day ED ROS GENERAL - Review of Systems Review Of Systems: ROS reveals no pertinent complaints other than HPI. ED EXAM, SKIN/RASH Exam: See Below (See dictation) Course - Orders/Labs/Meds Orders: Active Orders 24 hr Category Date Time Status Vaccines to be Administered [RC] PER UNIT ROUTINE Care 11/03/17 22:50 Ordered Meds: Medications Discontinued Medications Generic Name Dose Route Start Last Admin Trade Name Freq PRN Reason Stop Dose Admin Diphtheria/Tetanus/Acell Pertussis 0.5 ml 11/03/17 22:50 Adacel IM 11/03/17 22:51 .ONCE ONE Departure - Departure Time of Disposition: 22:54 Disposition: Home, Self-Care 01 Condition: Good Clinical Impression: Puncture wound of foot Qualifiers: Encounter type: initial encounter Laterality: left Qualified Code(s): S91.332A - Puncture wound without foreign body, left foot, initial encounter - Discharge Information Referrals: PCP,None [Primary Care Provider] - Additional Instructions: The following information is given to patients seen in the emergency department who are being discharged to home. This information is to outline your options for follow-up care. We provide all patients seen in our emergency department with a follow-up referral. The need for follow-up, as well as the timing and circumstances, are variable depending upon the specifics of your emergency department visit. If you don't have a primary care physician on staff, we will provide you with a referral. We always advise you to contact your personal physician following an emergency department visit to inform them of the circumstance of the visit and for follow-up with them and/or the need for any referrals to a consulting specialist. The emergency department will also refer you to a specialist when appropriate. This referral assures that you have the opportunity for followup care with a specialist. All of these measure are taken in an effort to provide you with optimal care, which includes your followup. Under all circumstances we always encourage you to contact your private physician who remains a resource for coordinating your care. When calling for followup care, please make the office aware that this follow-up is from your recent emergency room visit. If for any reason you are refused follow-up, please contact the [facility] emergency department at and ask to speak to the emergency department charge nurse. [facility] Specialty [facility]- Podiatry [address] [place] [id number] Fax: [phone] Elevate the foot as you need and use [id number] medications for pain as you choose. Please take antibiotics as directed until they're finished. You have been given clindamycin via [employer] [facility]. Please follow-up with the electrical and radio aircraft mechanic using resources given to above as you choose and return to ER as needed and as discussed - My Orders Last 24 Hours: My Active Orders 11/03/17 22:50 Vaccines to be Administered [RC] PER UNIT ROUTINE - Assessment/Plan Last 24 Hours: My Active Orders 11/03/17 22:50 Vaccines to be Administered [RC] PER UNIT ROUTINE
[2017-11-03 23:22] VITALS: BP 123/84
== END 2017-11-03 23:30 | disposition home or self-care (01) ==
LOC: MW.ED 22:33
DX: S91.332A Puncture wound without foreign body, left foot, initial encounter (principal); Z23 Encounter for immunization; Z88.0 Allergy status to penicillin; W45.0XXA Nail entering through skin, initial encounter
CPT/HCPCS: 90471; 90715; 99283-25

== ENCOUNTER 2018-03-16 18:54 | Emergency (ER) | payer BC ==
[2018-03-16] MEDS ORDERED: Sodium Chloride 0.9% 1,000 ML IV ONE (18:59)
[2018-03-16] MEDS ORDERED: Aspirin 81 MG Tab.Chew PO ONE (18:59)
[2018-03-16] MEDS ORDERED: Ketorolac 30 MG/ML SDV IVPUSH ONE (19:36)
[2018-03-16] MEDS ORDERED: methylPREDNISolone Sodium Succinate 125 MG/2 ML SDV IVPUSH ONE (19:37)
--- NOTE | 2018-03-16 19:42 | EDM.PDOC ---
ED HPI GENERAL MEDICAL PROBLEM - General Chief Complaint: Chest Pain Stated Complaint: RIGHT ARM PAIN AND LOSS OF MOVEMENT Time Seen by Provider: 03/16/18 19:05 Source of Information: Reports: Patient History Limitations: Reports: No Limitations - History of Present Illness INITIAL COMMENTS - FREE TEXT/NARRATIVE: HISTORY AND PHYSICAL: History of present illness: Patient is a 37-year-old female who presents to the emergency room with complaints of right-sided neck, shoulder, upper extremity and anterior chest pain. She states that she started having pain to her neck which shot down into her chest and down the right arm. This became aggravated while attempting to unload boxes while at work. She noticed that the pain is alleviated if she is able to keep her arm in an upright 90 position. She denies any injury, trauma or falls. Denies any numbness, tingling or weakness to the affected extremity. Review of systems: As per history of present illness and below otherwise all systems reviewed and negative. Past medical history: As per history of present illness and as reviewed below otherwise noncontributory. Surgical history: As per history of present illness and as reviewed below otherwise noncontributory. Social history: See social history for further information Family history: As per history of present illness and as reviewed below otherwise noncontributory. Physical exam: General: Well-developed and well-nourished 37 her old female. Alert and oriented. Nontoxic appearing and in no acute distress. HEENT: Atraumatic, normocephalic, pupils equal and reactive bilaterally, negative for conjunctival pallor or scleral icterus, mucous membranes moist, TMs normal bilaterally, throat clear, neck supple, nontender, trachea midline. No drooling or trismus noted. No meningeal signs. No hot potato voice noted. Lungs: Clear to auscultation, breath sounds equal bilaterally, chest nontender. Heart: S1S2, regular rate and rhythm without overt murmur Abdomen: Soft, nondistended, nontender. Negative for masses or hepatosplenomegaly. Negative for costovertebral tenderness. Pelvis: Stable nontender. Genitourinary: Deferred. Rectal: Deferred. Skin: Intact, warm, dry. No lesions or rashes noted. Extremities: Atraumatic, negative for cords or calf pain. Neurovascular unremarkable. Neuro: Awake, alert, oriented. Cranial nerves II through XII unremarkable. Cerebellum unremarkable. Motor and sensory unremarkable throughout. Exam nonfocal. Notes: Lab work is unremarkable. CT showws degenerative changes, but no acute findings. EKG shows a normal sinus rhythm with a rate of 85, no acute findings. Vital signs remain stable. We discussed supportive care measures along with appropriate follow-up with either the orthopedic provider or her primary care provider. We'll give her a steroid, diclofenac and Flexeril for her discomfort. Medication education was reviewed and discussed. She voices understanding and is agreeable to plan of care. Denies any further questions at this time. Diagnostics: CBC, CMP, troponin, EKG, one view chest, TSH, cervical spine CT Therapeutics: Toradol, Solu-Medrol, aspirin Prescription: Flexeril (#20) Medrol Dose radha Diclofenac Impression: Muscular strain Left shoulder pain, possible shoulder impingement Plan: 1. Take the medications as prescribed. 2. Gentle heat and range of motion/stretching exercises. 3. Please follow-up with your primary caregiver and/or the orthopedic provider in the next 1-2 days. Return to the ED as needed and as discussed. Definitive disposition and diagnosis as appropriate pending reevaluation and review of above. right shoulder Pain Score (Numeric/FACES): 7 - Related Data Allergies Allergy/AdvReac Type Severity Reaction Status Date / Time Penicillins Allergy Shortness Verified 03/16/18 18:57 of Breath Home Meds: Home Meds . 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: Musculoskeletal History: Reports: None Neurological History: Reports: None Psychiatric History: Reports: None Endocrine/Metabolic History: Reports: Obesity/BMI 30+ Hematologic History: Reports: Blood Transfusion(s) Immunologic History: Reports: None Oncologic (Cancer) History: Reports: None Dermatologic History: Reports: None - Infectious Disease History Infectious Disease History: Reports: Chicken Pox - Past Surgical History Head Surgeries/Procedures: Reports: None HEENT Surgical History: Reports: None Cardiovascular Surgical History: Reports: None Respiratory Surgical History: Reports: None GI Surgical History: Reports: Appendectomy, Other (See Below) Other GI Surgeries/Procedures: exploratory lap for ruptured appedicitis Female Surgical History: Reports: Section Endocrine Surgical History: Reports: None Neurological Surgical History: Reports: None Musculoskeletal Surgical History: Reports: None Oncologic Surgical History: Reports: None Dermatological Surgical History: Reports: None Social & Family History - Family History Family Medical History: Noncontributory - Tobacco Use Smoking Status *Q: Current Every Day Smoker Years of Tobacco use: 4 Packs/Tins Daily: 0.2 - Caffeine Use Caffeine Use: Reports: Soda Caffeine Use Comment: 1 cup per day - Recreational Drug Use Recreational Drug Use: No ED ROS GENERAL - Review of Systems Review Of Systems: ROS reveals no pertinent complaints other than HPI. ED EXAM, GENERAL - Physical Exam Exam: See Below (See dictation) Course - Vital Signs Last Recorded V/S: Last Vital Signs Temp 98.2 F 03/16/18 18:58 Pulse 67 03/16/18 19:50 Resp 16 03/16/18 19:50 BP 157/97 H 03/16/18 19:50 Pulse Ox 100 03/16/18 19:50 - Orders/Labs/Meds Orders: Active Orders 24 hr Category Date Time Status EKG Documentation Completion [RC] STAT Care 03/16/18 18:59 Active Labs: Laboratory Tests 03/16/18 03/16/18 Range/Units 19:05 19:05 WBC 8.34 (4.0-11.0) K/uL RBC 4.47 (4.30-5.90) M/uL Hgb 13.9 (12.0-16.0) g/dL Hct 40.2 (36.0-46.0) % MCV 89.9 (80.0-98.0) fL MCH 31.1 (27.0-32.0) pg MCHC 34.6 (31.0-37.0) g/dL RDW Std Deviation 42.4 (28.0-62.0) fl RDW Coeff of Jaylen 13 (11.0-15.0) % Plt Count 264 (150-400) K/uL MPV 10.20 (7.40-12.00) fL Neut % (Auto) 56.8 (48.0-80.0) % Lymph % (Auto) 30.2 (16.0-40.0) % [place] % (Auto) 8.3 (0.0-15.0) % Eos % (Auto) 4.2 (0.0-7.0) % Baso % (Auto) 0.5 (0.0-1.5) % Neut # (Auto) 4.7 (1.4-5.7) K/uL Lymph # (Auto) 2.5 H (0.6-2.4) K/uL [place] # (Auto) 0.7 (0.0-0.8) K/uL Eos # (Auto) 0.4 (0.0-0.7) K/uL Baso # (Auto) 0.0 (0.0-0.1) K/uL Nucleated RBC % 0.0 /100WBC Nucleated RBCs # 0 K/uL Sodium 141 (136-145) mmol/L Potassium 3.5 (3.5-5.1) mmol/L Chloride 103 (98-107) mmol/L Carbon Dioxide 27.8 (21.0-32.0) mmol/L BUN 13 (7.0-18.0) mg/dL Creatinine 0.8 (0.6-1.0) mg/dL Est Cr Clr Drug Dosing 75.41 mL/min Estimated GFR (MDRD) > 60.0 ml/min Glucose 87 (74-106) mg/dL Calcium 9.1 (8.5-10.1) mg/dL Total Bilirubin 0.6 (0.2-1.0) mg/dL AST 19 (15-37) IU/L ALT 28 (14-63) IU/L Alkaline Phosphatase 81 (46-116) U/L Troponin I < 0.050 (0.000-0.056) ng/mL Total Protein 7.4 (6.4-8.2) g/dL Albumin 3.7 (3.4-5.0) g/dL Globulin 3.7 (2.6-4.0) g/dL Albumin/Globulin Ratio 1.0 (0.9-1.6) TSH 3rd Generation 1.63 (0.36-3.74) uIU/mL Meds: Medications Discontinued Medications Generic Name Dose Route Start Last Admin Trade Name Freq PRN Reason Stop Dose Admin Aspirin 324 mg 03/16/18 18:59 03/16/18 19:04 Aspirin PO 03/16/18 19:00 324 mg ONETIME ONE Administration Sodium Chloride 1,000 mls @ 999 mls/hr 03/16/18 18:59 03/16/18 19:05 Normal Saline IV 03/16/18 19:59 999 mls/hr STAT ONE Administration Ketorolac Tromethamine 30 mg 03/16/18 19:36 03/16/18 19:45 Toradol IVPUSH 03/16/18 19:37 30 mg ONETIME ONE Administration Methylprednisolone Sodium Succinate 125 mg 03/16/18 19:37 03/16/18 19:51 Solu-Medrol IVPUSH 03/16/18 19:38 125 mg ONETIME ONE Administration Departure - Departure Time of Disposition: 20:18 Disposition: Home, Self-Care 01 Clinical Impression: Muscle strain Right shoulder pain Qualifiers: Chronicity: acute Qualified Code(s): M25.511 - Pain in right shoulder - Discharge Information Instructions: Shoulder Pain, Muscle Strain, [id number] Referrals: Taylor Jefferson DO [Primary Care Provider] - Forms: ED Department Discharge Additional Instructions: The following information is given to patients seen in the emergency department who are being discharged to home. This information is to outline your options for follow-up care. We provide all patients seen in our emergency department with a follow-up referral. The need for follow-up, as well as the timing and circumstances, are variable depending upon the specifics of your emergency department visit. If you don't have a primary care physician on staff, we will provide you with a referral. We always advise you to contact your personal physician following an emergency department visit to inform them of the circumstance of the visit and for follow-up with them and/or the need for any referrals to a consulting specialist. The emergency department will also refer you to a specialist when appropriate. This referral assures that you have the opportunity for follow-up care with a specialist. All of these measure are taken in an effort to provide you with optimal care, which includes your follow-up. Under all circumstances we always encourage you to contact your private physician who remains a resource for coordinating your care. When calling for follow-up care, please make the office aware that this follow-up is from your recent emergency room visit. If for any reason you are refused follow-up, please contact the [facility] Emergency Department at and asked to speak to the emergency department charge nurse. [facility] Primary Care [address] [address] [facility] [address] [place] [id number] [facility] Specialty Care - Orthopedic Clinic Professional Building [address], [address] [place] [address] 1. Take the medications as prescribed. 2. Gentle heat and range of motion/stretching exercises. 3. Please follow-up with your primary caregiver and/or the orthopedic provider in the next 1-2 days. Return to the ED as needed and as discussed. - My Orders Last 24 Hours: My Active Orders 03/16/18 18:59 EKG Documentation Completion [RC] STAT - Assessment/Plan Last 24 Hours: My Active Orders 03/16/18 18:59 EKG Documentation Completion [RC] STAT
[2018-03-16 19:43] LABS: CHLORIDE,CL 103 mmol/L (98-107); SODIUM,NA 141 mmol/L (136-145)
--- NOTE | 2018-03-16 19:49 | CR ---
INDICATION: Right shoulder and neck pain TECHNIQUE: Chest 1 views COMPARISON: Chest x-ray 08/30/2016 FINDINGS: Cardiovascular and mediastinum: Heart size and vasculature are normal in caliber and appearance. Lungs and pleural spaces: Lungs are clear. No sign of infiltrate or mass. No sign of pleural effusion. No pneumothorax. Bones and soft tissues: No significant findings. IMPRESSION: No acute findings and no significant changes from the prior exam. Dictated by Ghanshyam Connelly MD @ Mar 16 2018 7:46PM Signed by Dr. Ghanshyam Connelly @ Mar 16 2018 7:47PM
--- NOTE | 2018-03-16 20:18 | CT ---
INDICATION: Pain, numbness right hand TECHNIQUE: CT cervical spine without contrast. COMPARISON: None FINDINGS: Vertebral alignment: Alignment is normal. Vertebrae: There are no fractures or suspicious bony lesions. Discs and facet joints: There are degenerative disc changes at C5-6 and C6-7. There are multilevel degenerative changes in the facets. Extraspinal findings: Paraspinous soft tissues are unremarkable. IMPRESSION: 1. No sign of acute injury. 2. Multilevel degenerative spondylosis. Please note that all CT scans at this facility use dose modulation, iterative reconstruction, and/or weight-based dosing when appropriate to reduce radiation dose to as low as reasonably achievable. Dictated by Abida Wilcox MD @ Mar 16 2018 8:09PM Signed by Dr. Abida Wilcox @ Mar 16 2018 8:15PM
[2018-03-16 20:30] VITALS: BP 137/78
== END 2018-03-16 20:30 | disposition home or self-care (01) ==
LOC: MW.ED 18:54
DX: S46.911A Strain of unspecified muscle, fascia and tendon at shoulder and upper arm level, right arm, initial encounter (principal); F17.210 Nicotine dependence, cigarettes, uncomplicated; Z88.0 Allergy status to penicillin; X50.9XXA Other and unspecified overexertion or strenuous movements or postures, initial encounter; Y99.0 Civilian activity done for income or pay
CPT/HCPCS: 36415; 71045; 72125; 80053; 84443; 84484; 85025; 96361; 96374; 96375; 99285; A9270; J1885; J2930; J7040; 99283

== ENCOUNTER 2018-04-12 16:52 | Emergency (ER) | payer BC ==
--- NOTE | 2018-04-12 17:06 | EDM.PDOC ---
ED HPI GENERAL MEDICAL PROBLEM - General Chief Complaint: Upper Extremity Injury/Pain Stated Complaint: RIGHT SHOULDER PAIN Time Seen by Provider: 04/12/18 16:57 - History of Present Illness INITIAL COMMENTS - FREE TEXT/NARRATIVE: HISTORY AND PHYSICAL: History of present illness: Patient is a 37-year-old white female who presents with concern of right shoulder pain is in a chronic prominent she has been seen by orthopedic surgery with recent MRI this as reviewed by myself it did demonstrate supraspinatus and infraspinatus tendinopathy without evidence of laceration. There is no other significant findings report Review of systems: As per history of present illness and below otherwise all systems reviewed and negative. Past medical history: As per history of present illness and as reviewed below otherwise noncontributory. Surgical history: As per history of present illness and as reviewed below otherwise noncontributory. Social history: No reported history of drug or alcohol abuse. Family history: As per history of present illness and as reviewed below otherwise noncontributory. Physical exam: HEENT: Atraumatic, normocephalic, pupils reactive, negative for conjunctival pallor or scleral icterus, mucous membranes moist, throat clear, neck supple, nontender, trachea midline. Lungs: Clear to auscultation, breath sounds equal bilaterally, chest nontender. Heart: S1S2, regular, negative for clicks, rubs, or JVD. Abdomen: Soft, nondistended, nontender. Negative for masses or hepatosplenomegaly. Negative for costovertebral tenderness. Pelvis: Stable nontender. Genitourinary: Deferred. Rectal: Deferred. Extremities: Patient is right shoulder pain with limited range of motion secondary to pain there is no crepitation or point tenderness no gross deformity neurovascular tendon CMS is unremarkable Neuro: Awake, alert, oriented. Cranial nerves II through XII unremarkable. Cerebellum unremarkable. Motor and sensory unremarkable throughout. Exam nonfocal. Diagnostics: None Therapeutics: Sling Impression: #1 chronic right shoulder pain #2 tendinopathy right shoulder Definitive disposition and diagnosis as appropriate pending reevaluation and review of above. - Related Data Allergies Allergy/AdvReac Type Severity Reaction Status Date / Time Penicillins Allergy Shortness Verified 03/16/18 18:57 of Breath Home Meds: Home Meds . 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: Musculoskeletal History: Reports: None Neurological History: Reports: None Psychiatric History: Reports: None Endocrine/Metabolic History: Reports: Obesity/BMI 30+ Hematologic History: Reports: Blood Transfusion(s) Immunologic History: Reports: None Oncologic (Cancer) History: Reports: None Dermatologic History: Reports: None - Infectious Disease History Infectious Disease History: Reports: Chicken Pox - Past Surgical History Head Surgeries/Procedures: Reports: None HEENT Surgical History: Reports: None Cardiovascular Surgical History: Reports: None Respiratory Surgical History: Reports: None GI Surgical History: Reports: Appendectomy, Other (See Below) Other GI Surgeries/Procedures: exploratory lap for ruptured appedicitis Female Surgical History: Reports: Section Endocrine Surgical History: Reports: None Neurological Surgical History: Reports: None Musculoskeletal Surgical History: Reports: None Oncologic Surgical History: Reports: None Dermatological Surgical History: Reports: None Social & Family History - Family History Family Medical History: Noncontributory - Caffeine Use Caffeine Use: Reports: Soda Caffeine Use Comment: 1 cup per day ED ROS GENERAL - Review of Systems Review Of Systems: ROS reveals no pertinent complaints other than HPI. ED EXAM, GENERAL - Physical Exam Exam: See Below (See dictation) Departure - Departure Time of Disposition: 17:05 Disposition: Home, Self-Care 01 Condition: Good Clinical Impression: Shoulder pain, Tendinopathy - Discharge Information Referrals: Taylor Jefferson DO [Primary Care Provider] - Additional Instructions: The following information is given to patients seen in the emergency department who are being discharged to home. This information is to outline your options for follow-up care. We provide all patients seen in our emergency department with a follow-up referral. The need for follow-up, as well as the timing and circumstances, are variable depending upon the specifics of your emergency department visit. If you don't have a primary care physician on staff, we will provide you with a referral. We always advise you to contact your personal physician following an emergency department visit to inform them of the circumstance of the visit and for follow-up with them and/or the need for any referrals to a consulting specialist. The emergency department will also refer you to a specialist when appropriate. This referral assures that you have the opportunity for followup care with a specialist. All of these measure are taken in an effort to provide you with optimal care, which includes your followup. Under all circumstances we always encourage you to contact your private physician who remains a resource for coordinating your care. When calling for followup care, please make the office aware that this follow-up is from your recent emergency room visit. If for any reason you are refused follow-up, please contact the [facility] emergency department at and asked to speak to the emergency department charge nurse. Sling as directed diclofenac as prescribed keep scheduled appointment with orthopedic surgery tomorrow as discussed return as needed as discussed
[2018-04-12 17:29] VITALS: BP 130/90
== END 2018-04-12 17:10 | disposition home or self-care (01) ==
LOC: MW.ED 16:52
DX: M75.91 Shoulder lesion, unspecified, right shoulder (principal); E66.9 Obesity, unspecified; Z88.0 Allergy status to penicillin; Z90.49 Acquired absence of other specified parts of digestive tract
CPT/HCPCS: 99283

== ENCOUNTER 2019-04-24 09:42 | Emergency (ER) | payer BC ==
[2019-04-24] MEDS ORDERED: Albuterol/Ipratropium 3.0-0.5 MG/3 ML Neb Soln ONE (09:43)
[2019-04-24] MEDS ORDERED: Albuterol/Ipratropium 3.0-0.5 MG/3 ML Neb Soln NEB ONE (09:46)
--- NOTE | 2019-04-24 10:36 | CR ---
Chest: 2 views of the chest were obtained. Comparison: Prior chest x-ray of 03/16/18. Heart size and mediastinum are normal. Lungs are clear with no acute parenchymal change. Minimal scoliosis is noted. No acute osseous finding is seen. Impression: 1. Nothing acute is identified on 2 view chest x-ray. Diagnostic code #2 This report was dictated in [place] Standard Time
--- NOTE | 2019-04-24 10:45 | EDM.PDOC ---
ED HPI GENERAL MEDICAL PROBLEM - General Chief Complaint: Respiratory Problem Stated Complaint: ASTHMA ATTACK Time Seen by Provider: 04/24/19 09:47 - History of Present Illness INITIAL COMMENTS - FREE TEXT/NARRATIVE: HPI 38-year-old obese female smoker with recently diagnosed reactive airway disease presents with worsening wheezing and shortness breath of 12+ hours duration refractory to her home albuterol (no spacer). Patient endorses sore throat, postnasal drip, and sinus congestion of ~1 month duration, is being followed by ENT and is on her 2nd round of antibiotics and began prednisone yesterday. * PE risk factors: denies recent immobilization, leg trauma, estrogen use, surgery in the last four weeks, hemoptysis, or malignancy in the last 6 months. * Inhaler(s): albuterol. * CHF: denies weight gain, orthopnea, or diuretic use. M/S/F/SocHx notable for: please see HPI; remainder reviewed with patient and in chart. ROS: Negative constitutional, eye, cardiovascular, pulmonary, GI, , MSK, skin , neurologic, psychiatric, endocrine unless noted in the HPI. Exam HR 102, RR 20, BP 147/97, T 35.7C, SaO2 96% on room air. Gen: Pleasant, non-toxic appearing, resting comfortably. HEENT: NC, AT, PEERL, EOMI, trachea midline. Resp: diffuse fine expiratory wheezing throughout all lung العلي, otherwise clear to auscultation bilaterally, normal work of breathing. Card: RRR with no M/R/G, no crackles in lung bases, no pedal edema, no JVD appreciated. GI: NT/ND Vascular: Both ankles, calves, and thighs of equal size, no calf tenderness to palpation bilaterally. MSK: No chest wall TTP. No visible deformities, strength and tone WNL. Skin: Normal color with no visible lesions. Neuro: alert and oriented 3, no facial asymmetry, vision and hearing WNL. Psych: Mood and affect appropriate. Labs / Imaging (pertinent): CXR: nothing acute was identified 2 view chest x-ray. MDM Previous chart, nursing note, and vitals reviewed. A: 38-year-old obese female smoker with recently diagnosed reactive airway disease presents with worsening wheezing and shortness breath of 12+ hours duration refractory to her home albuterol (no spacer). DDx: pneumonia, reactive airway disease / COPD / Asthma, bronchitis, pneumothorax, anxiety, PE, CHF, pleural effusion, pericardial effusion, ACS. Evaluation: * Pneumonia - as the CXR is without focal infiltrate and the patient is afebrile and without significant sputum production, doubt pneumonia. * Reactive airway disease / COPD / Asthma - patient with known diagnosis of reactive airway disease, provoking event (apparent URI), significant improvement with a DuoNeb. Suspect todays presentation was secondary to her RAD. Patient currently on prednisone, instructed to purchase an OTC spacer used with her current albuterol. * Bronchitis - doubt given the lack of productive cough or systemic symptoms. * Pneumothorax - no evidence by CXR. * Anxiety - patient clinically without evidence of appreciable anxiety on exam. * PE - low clinical suspicion given history and alternate diagnosis, further risk stratification (e.g.) Well's not indicated. * CHF - no evidence by auscultation, CXR, and absence of pedal edema. * Pleural effusion - CXR without evidence of effusions. * Pericardial effusion - doubt pericardial effusion given an alternate diagnosis , the lack of cardiomegaly on CXR and normal heart sounds. * ACS - no features on history or exam to warrant an ACS evaluation. ED Course: DuoNeb x 1 given with significant improvement and normalization of work of breathing. Impression: reactive airway disease exacerbation. 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: Musculoskeletal History: Reports: None Neurological History: Reports: None Psychiatric History: Reports: None Endocrine/Metabolic History: Reports: Obesity/BMI 30+ Hematologic History: Reports: Blood Transfusion(s) Immunologic History: Reports: None Oncologic (Cancer) History: Reports: None Dermatologic History: Reports: None - Infectious Disease History Infectious Disease History: Reports: Chicken Pox - Past Surgical History Head Surgeries/Procedures: Reports: None HEENT Surgical History: Reports: Naso-Sinus Surgery, Polypectomy Cardiovascular Surgical History: Reports: None Respiratory Surgical History: Reports: None GI Surgical History: Reports: Appendectomy, Cholecystectomy, Other (See Below) Other GI Surgeries/Procedures: exploratory lap for ruptured appedicitis Female Surgical History: Reports: Section, Hysterectomy Endocrine Surgical History: Reports: None Neurological Surgical History: Reports: None Musculoskeletal Surgical History: Reports: None Oncologic Surgical History: Reports: None Dermatological Surgical History: Reports: None Social & Family History - Family History Family Medical History: Noncontributory - Tobacco Use Smoking Status *Q: Current Every Day Smoker Years of Tobacco use: 6 Packs/Tins Daily: 0.1 - Caffeine Use Caffeine Use: Reports: Soda Caffeine Use Comment: 1 cup per day - Recreational Drug Use Recreational Drug Use: No ED ROS GENERAL - Review of Systems Review Of Systems: See Below ED EXAM, GENERAL - Physical Exam Exam: See Below Course - Vital Signs Last Recorded V/S: Last Vital Signs Temp 36.0 C L 04/24/19 10:32 Pulse 102 H 04/24/19 09:44 Resp 18 04/24/19 10:32 BP 138/96 H 04/24/19 10:32 Pulse Ox 98 04/24/19 10:32 - Orders/Labs/Meds Orders: Active Orders 24 hr Category Date Time Status RT Aerosol Therapy [RC] ASDIRECTED Care 04/24/19 09:46 Active Meds: Medications Discontinued Medications Generic Name Dose Route Start Last Admin Trade Name Freq PRN Reason Stop Dose Admin Albuterol/Ipratropium 3 ml 04/24/19 09:46 04/24/19 09:47 Duoneb 3.0-0.5 Mg/3 Ml NEB 04/24/19 09:47 3 ml ONETIME ONE Administration Albuterol/Ipratropium Confirm 04/24/19 09:43 04/24/19 10:11 Duoneb 3.0-0.5 Mg/3 Ml Administered 04/24/19 09:44 Not Given Dose 3 ml .ROUTE .STK-MED ONE Departure - Departure Time of Disposition: 10:44 Disposition: Home, Self-Care 01 Preliminary Cause of *Q: Sepsis & Multi System Organ Failure Clinical Impression: Reactive airway disease with wheezing - Discharge Information Referrals: PCP,None [Primary Care Provider] - Additional Instructions: You were in seen in the [facility] Emergency Department for evaluation of shortness breath, your found have a reactive airway disease exacerbation. Please purchase an [id number] spacer and use it with your inhaler without exception. Please read and follow all of the instructions below. Please follow up with your primary care physician within 48 hours. When calling for follow-up care, please make the office aware that this follow-up is from your recent emergency room visit. If for any reason you are refused follow-up, please contact the [facility] Emergency Department at and asked to speak to the emergency department charge nurse. Your care today was limited to identifying and treating emergent medical problems only. Many people have subtle differences in their test results that require follow up with their outpatient physician(s) to correctly determine if this represents a normal variation or concerning abnormality with respect to your specific health. The care given to you today was limited to identifying and treating emergent medical problems - you need to request a copy of all of your medical records from today's visit and follow up with your outpatient physician(s) to review both today's visit and your overall health. If you have any new symptoms or if you are at all concerned about your health please return immediately to the emergency department. Prescriptions: If you are uninsured or have financial difficulties with filling your prescription(s), you may consider using a free pharmacy discount service such as [employer] ([employer]) or [employer] ([employer]). These services allow you to search for a medication on your phone (or computer) and obtain a coupon that usually has a significant discount from the list hess at a pharmacy. Your physician as well as [facility] does not have a financial relationship with either of these services. You may also wish to speak with your physician to determine if lower cost prescriptions are possible. Obtaining primary care: 1. [facility] provides pediatrics (children), family medicine (children, adults, and some obstetrical care), and internal medicine (adults). Further specialty care is also available. Same day appointments are available. They may be contacted at [phone] and are open Thursday through Thursday 8 AM to 5 PM. The [facility] are located at [facility], [address] [place] [address]. 2. [facility] offers family medicine, internal medicine, women health, and further specialty care. [facility] may be contacted at [phone]. [facility] is located at [address] [place], [address]. 3. If you have health insurance, please also contact your insurer for a list of accepting providers under your policy, you may contact these providers for further health care. Occupational health: Work related injuries may consider following up with [facility], . Occupational health services are located at [address] [place] [address] and are open Thursday through Thursday from 7: 30 am to 5:00 pm. Obstetrical and Gynecological Care: [facility], , Thursday through Thursday 8 AM to [address] [place] [address]. Eyecare: If you have an eye injury you should follow up with your legal counsel or with [facility], at [phone] or [phone] , they are located at [address] [place] [address]. Dental Care Cristian Ramirez DDS. [address] [place], [place]. Ph. [phone] Aric Ramirez DDS [place]. [address] [facility] [address], [place], [place]. Ph. Felix Brenner DDS. [address] [place], [place]. Ph. [phone] Franki Carrizales DDS. [address] [facility] 4 [place], [place]. Ph. [phone] Zoltan Martini DDS PC. [address] [place], [place]. Ph. Demarco Hickman DDS. [address] [facility]. Ph. [phone] [facility]. [address] [place], [place]. Ph. [phone] [facility]. [address], [place], [place]. Ph. [phone] [facility] [address] [place] [phone]. Ph. [facility]. [address] [place] [address] [address] [place], [place]. Ph. [phone] [facility]. [address] [place] [address]. Ph. Sepsis Event Note - Evaluation Sepsis Screening Result: No Definite Risk - Focused Exam Vital Signs: Vital Signs Temp Pulse Resp BP Pulse Ox 04/24/19 10:32 36.0 C L 18 138/96 H 98 04/24/19 09:44 35.7 C L 102 H 20 147/97 H 96 Date Exam was Performed: 04/24/19 Time Exam was Performed: 10:43 - My Orders Last 24 Hours: My Active Orders 04/24/19 09:46 RT Aerosol Therapy [RC] ASDIRECTED - Assessment/Plan Last 24 Hours: My Active Orders 04/24/19 09:46 RT Aerosol Therapy [RC] ASDIRECTED
[2019-04-24 10:53] VITALS: BP 148/96; PULSE 83
== END 2019-04-24 10:52 | disposition home or self-care (01) ==
LOC: MW.ED 09:42
DX: J45.909 Unspecified asthma, uncomplicated (principal); E66.9 Obesity, unspecified; F17.210 Nicotine dependence, cigarettes, uncomplicated; Z88.0 Allergy status to penicillin
CPT/HCPCS: 71046; 71046-26; 99283; 99285-25; J7620-GY

== ENCOUNTER 2020-03-15 10:21 | Emergency (ER) | payer BC ==
--- NOTE | 2020-03-15 10:31 | EDM.PDOC ---
ED HPI GENERAL MEDICAL PROBLEM - General Stated Complaint: ASTHMA ACTING UP Time Seen by Provider: 03/15/20 10:26 Source of Information: Reports: Patient History Limitations: Reports: No Limitations - History of Present Illness INITIAL COMMENTS - FREE TEXT/NARRATIVE: HISTORY AND PHYSICAL: History of present illness: Patient is a 39-year-old female who presents to the emergency room with complaints of shortness of breath. She states the shortness of breath woke her up around 430 this morning. She does have a rescue inhaler in which she has been using, feels no relief with that. Patient denies any fever, chills, headache, change in vision, syncope or near syncope. Denies any chest pain, back pain, shortness of breath or cough. Denies any abdominal pain, nausea, vomiting, diarrhea, constipation or dysuria. Has not noted any blood in urine or stool. Patient has been eating and drinking appropriately. Review of systems: As per history of present illness and below otherwise all systems reviewed and negative. Past medical history: As per history of present illness and as reviewed below otherwise noncontributory. Surgical history: As per history of present illness and as reviewed below otherwise noncontributory. Social history: See social history for further information Family history: As per history of present illness and as reviewed below otherwise noncontributory. Physical exam: General: Well developed and well nourished 39 year old female. Alert and orientated x 3. Nontoxic in appearance and in no acute distress. Vital signs are stable and have been reviewed by me. Nursing notes were reviewed. HEENT: Atraumatic, normocephalic, pupils equal and reactive bilaterally, negative for conjunctival pallor or scleral icterus, mucous membranes moist, trachea midline. No drooling or trismus noted. No meningeal signs. No hot potato voice noted. Lungs: Fine expiratory wheezing to auscultation bilaterally. No rales or rhonchi. Chest nontender. Normal work of breathing, no accessory muscles used. Heart: S1S2, regular rate and rhythm without overt murmur, gallops, or rubs. No JVD. No peripheral edema Abdomen: Soft, nondistended, nontender. Normoactive bowel sounds. Negative for masses or costovertebral tenderness. Skin: Intact, warm, dry. No lesions or rashes noted. Hematologic: No petechiae or purpra. Mucosa appropriate color and normal nail bed color and refill. Extremities: Atraumatic, moves all extremities per self without difficulty or deficits, negative for cords or calf pain. Neurovascular unremarkable. Neuro: Awake, alert, oriented. Cranial nerves II through XII unremarkable. Cerebellum unremarkable. Motor and sensory unremarkable throughout. Exam nonfocal. Psychiatric: Mood and affect are appropriate. Normal thought process. Answering questions appropriately. Notes: *This patient was seen and evaluated during the 2019 SARS-CoV-2 novel coronavirus pandemic period. Community viral transmission is ongoing at time of this encounter and the emergency department is operating under pandemic response procedures. HEART SCORE: Low Risk. EKG shows a sinus rhythm with a rate of 93, no concern for STEMI. Chest x-ray is unremarkable. Negative flu/COVID. I have talked with the patient about today's findings, in addition to providing specific details for plan of care. Reassessment at the time of disposition demonstrates that the patient is in no acute distress. The patient is stable for discharge, counseling was provided and we discussed in great detail signs and symptoms that would prompt them to return to the Emergency Department. Medication, follow up and supportive care measures were reviewed and discussed. Voices understanding and is agreeable to plan of care. Denies any further questions or concerns at this time. Diagnostics: EKG, chest x-ray, COVID-19/influenza Therapeutics: Prednisone, DuoNeb Prescription: Prednisone, DuoNeb, nebulizer prescription Impression: Asthma exacerbation Plan: 1. You can use the nebulizer machine/DuoNeb every 4 hours as needed. Please take the steroid as directed. If your symptoms should worsen, new symptoms develop or any of the signs and symptoms we discussed should arise please return to the emergency room or call 911 (if needed). 2. You can alternate Tylenol and ibuprofen as needed for pain and fever management. 3. We encourage you to follow up with your primary care provider and/or recommended specialist in the next few days for re-evaluation and further care/management. Definitive disposition and diagnosis as appropriate pending reevaluation and review of above. - Related Data Allergies Allergy/AdvReac Type Severity Reaction Status Date / Time Penicillins Allergy Shortness Verified 03/15/20 10:31 of Breath Home Meds: Home Meds Albuterol/Ipratropium [DuoNeb 3.0-0.5 MG/3 ML] 1 ampule INH Q4HR PRN #1 box 03/15/20 [Rx] Cetirizine HCl [Zyrtec] 10 mg PO DAILY 03/15/20 [History] Dupilumab [Dupixent Syringe] 300 mg INJECT ASDIRECTED 03/15/20 [History] Montelukast [Singulair] 20 mg PO DAILY 03/15/20 [History] predniSONE [Prednisone] 40 mg PO DAILY 5 Days #10 tablet 03/15/20 [Rx] Past Medical History HEENT History: Reports: Sinusitis, Other (See Below) Other HEENT History: wears glasses Cardiovascular History: Reports: None Respiratory History: Reports: Asthma Gastrointestinal History: Reports: Cholelithiasis Genitourinary History: Reports: None 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: Musculoskeletal History: Reports: None Neurological History: Reports: None Psychiatric History: Reports: None Endocrine/Metabolic History: Reports: Obesity/BMI 30+ Hematologic History: Reports: Blood Transfusion(s) Immunologic History: Reports: None Oncologic (Cancer) History: Reports: None Dermatologic History: Reports: None - Infectious Disease History Infectious Disease History: Reports: Chicken Pox - Past Surgical History Head Surgeries/Procedures: Reports: None HEENT Surgical History: Reports: Naso-Sinus Surgery, Polypectomy Cardiovascular Surgical History: Reports: None Respiratory Surgical History: Reports: None GI Surgical History: Reports: Appendectomy, Cholecystectomy, Other (See Below) Other GI Surgeries/Procedures: exploratory lap for ruptured appedicitis Female Surgical History: Reports: Section, Hysterectomy Endocrine Surgical History: Reports: None Neurological Surgical History: Reports: None Musculoskeletal Surgical History: Reports: None Oncologic Surgical History: Reports: None Dermatological Surgical History: Reports: None Social & Family History - Family History Family Medical History: No Pertinent Family History - Caffeine Use Caffeine Use: Reports: Soda Caffeine Use Comment: 1 cup per day ED ROS GENERAL - Review of Systems Review Of Systems: Comprehensive ROS is negative, except as noted in HPI. ED EXAM, GENERAL - Physical Exam Exam: See Below (See dictation) Course - Vital Signs Last Recorded V/S: Last Vital Signs Temp 97.1 F 03/15/20 10:58 Pulse 97 03/15/20 10:58 Resp 20 03/15/20 10:58 BP 144/86 H 03/15/20 10:58 Pulse Ox 97 03/15/20 10:58 - Orders/Labs/Meds Orders: Active Orders 24 hr Category Date Time Status EKG Documentation Completion [RC] STAT Care 03/15/20 10:35 Active RT Aerosol Therapy [RC] ASDIRECTED Care 03/15/20 10:36 Active Labs: Laboratory Tests 03/15/20 Range/Units 11:05 Influenza Type A RNA NEGATIVE (NEGATIVE) Influenza Type B RNA NEGATIVE (NEGATIVE) SARS-CoV-2 RNA (SOTO) NEGATIVE (NEGATIVE) Meds: Medications Discontinued Medications Generic Name Dose Route Start Last Admin Trade Name Freq PRN Reason Stop Dose Admin Albuterol/Ipratropium 3 ml 03/15/20 10:36 Duoneb 3.0-0.5 Mg/3 Ml NEB 03/15/20 10:37 ONETIME ONE Prednisone 40 mg 03/15/20 10:34 03/15/20 11:06 Prednisone PO 03/15/20 10:35 40 mg ONETIME ONE Administration Departure - Departure Time of Disposition: 12:16 Disposition: Home, Self-Care 01 Clinical Impression: Exacerbation of asthma Qualifiers: Asthma severity: moderate Asthma persistence: unspecified Qualified Code(s): J45.901 - Unspecified asthma with (acute) exacerbation - Discharge Information Prescriptions: Albuterol/Ipratropium [DuoNeb 3.0-0.5 MG/3 ML] 1 ampule INH Q4HR PRN #1 box PRN Reason: Dyspnea predniSONE [Prednisone] 40 mg PO DAILY 5 Days #10 tablet Instructions: Asthma, Adult Referrals: Taylor Jefferson DO [Primary Care Provider] - Additional Instructions: The following information is given to patients seen in the emergency department who are being discharged to home. This information is to outline your options for follow-up care. We provide all patients seen in our emergency department with a follow-up referral. The need for follow-up, as well as the timing and circumstances, are variable depending upon the specifics of your emergency department visit. If you don't have a primary care physician on staff, we will provide you with a referral. We always advise you to contact your personal physician following an emergency department visit to inform them of the circumstance of the visit and for follow-up with them and/or the need for any referrals to a consulting specialist. The emergency department will also refer you to a specialist when appropriate. This referral assures that you have the opportunity for follow-up care with a specialist. All of these measure are taken in an effort to provide you with optimal care, which includes your follow-up. Under all circumstances we always encourage you to contact your private physician who remains a resource for coordinating your care. When calling for follow-up care, please make the office aware that this follow-up is from your recent emergency room visit. If for any reason you are refused follow-up, please contact the [facility] Emergency Department at and asked to speak to the emergency department charge nurse. [facility] [address] [place] [address] [facility] [address] [place] [phone] Thank you for choosing the [facility] emergency department in [place] for your medical needs today. It was a pleasure caring for you. Today you were seen in the emergency department for shortness of breath. 1. You can use the nebulizer machine/DuoNeb every 4 hours as needed. Please take the steroid as directed. If your symptoms should worsen, new symptoms develop or any of the signs and symptoms we discussed should arise please return to the emergency room or call 911 (if needed). 2. You can alternate Tylenol and ibuprofen as needed for pain and fever management. 3. We encourage you to follow up with your primary care provider and/or recommended specialist in the next few days for re-evaluation and further care/management. Sepsis Event Note (ED) - Focused Exam Vital Signs: Vital Signs Temp Pulse Resp BP Pulse Ox 03/15/20 10:58 97.1 F 97 20 144/86 H 97 - My Orders Last 24 Hours: My Active Orders 03/15/20 10:35 EKG Documentation Completion [RC] STAT 03/15/20 10:36 RT Aerosol Therapy [RC] ASDIRECTED - Assessment/Plan Last 24 Hours: My Active Orders 03/15/20 10:35 EKG Documentation Completion [RC] STAT 03/15/20 10:36 RT Aerosol Therapy [RC] ASDIRECTED
[2020-03-15] MEDS ORDERED: predniSONE 20 MG Tab PO ONE (10:34)
[2020-03-15] MEDS ORDERED: Albuterol/Ipratropium 3.0-0.5 MG/3 ML Neb Soln NEB ONE (10:36)
--- NOTE | 2020-03-15 11:22 | PCM.SN.2 ---
#1 Interpretation EKG Date: 03/15/20 Time: 10:43 Rhythm: NSR Rate (Beats/Min): 93 [place]: Normal P-Wave: Present QRS: Normal ST-T: Normal QT: Normal [place]/PQ Interval: 147 EKG Interpretation Comments: non-ischemic EKG
--- NOTE | 2020-03-15 11:54 | CR ---
INDICATION: SOB. TECHNIQUE: PA and lateral. COMPARISON: 04/24/2019. FINDINGS: Lungs and pleural spaces clear. Heart size and pulmonary vasculature within normal limits. No significant osseous abnormality. IMPRESSION: Negative chest. Dictated by Andrew Robles MD @ Mar 15 2020 11:53AM Signed by Dr. Andrew Robles @ Mar 15 2020 11:53AM
[2020-03-15 12:12] LABS: CORONAVIRUS COVID-19 NAA NEGATIVE (NEGATIVE); INFLUENZA A NAA NEGATIVE (NEGATIVE); INFLUENZA B NAA NEGATIVE (NEGATIVE)
[2020-03-15 14:17] VITALS: BP 134/74; PULSE 92
== END 2020-03-15 12:32 | disposition home or self-care (01) ==
LOC: MW.ED 10:21
DX: J45.901 Unspecified asthma with (acute) exacerbation (principal); Z88.0 Allergy status to penicillin; E66.9 Obesity, unspecified; Z68.38 Body mass index [BMI] 38.0-38.9, adult; Z20.822 Contact with and (suspected) exposure to COVID-19; Z79.899 Other long term (current) drug therapy
CPT/HCPCS: 0240U; 71046; 93005; 94640; 99285; A9270; 93010; 99283; J7620-GY

== ENCOUNTER 2020-10-19 01:57 | Emergency (ER) | payer BC ==
[2020-10-19] MEDS ORDERED: Dexamethasone 10 MG/ML SDV IVPUSH ONE (03:17)
--- NOTE | 2020-10-19 03:21 | EDM.PDOC ---
ED HPI GENERAL MEDICAL PROBLEM - General Chief Complaint: Respiratory Problem Stated Complaint: SORE THROAT, ASTHMA ISSUES Time Seen by Provider: 10/19/20 01:58 - History of Present Illness INITIAL COMMENTS - FREE TEXT/NARRATIVE: 40-year-old female presenting with sore throat myalgias and some mild chest tightness. She has a history of asthma denies chest pain but reports some tightness. She reports her breathing "is not too bad." She last used her nebulizer machine 4 hours ago. She is concerned about the possibility of Covid or strep. No abdominal pain no nausea no vomiting no diarrhea. The sore throat is the most bothersome symptom for her it is constant and progressive without alleviating factors Throat Pain Score (Numeric/FACES): 6 - Related Data Allergies Allergy/AdvReac Type Severity Reaction Status Date / Time Penicillins Allergy Shortness Verified 10/19/20 02:27 of Breath Home Meds: Home Meds Albuterol/Ipratropium [DuoNeb 3.0-0.5 MG/3 ML] 1 ampule INH Q4HR PRN #1 box 03/15/20 [Rx] Cetirizine HCl [Zyrtec] 10 mg PO DAILY 03/15/20 [History] Dupilumab [Dupixent Syringe] 300 mg INJECT ASDIRECTED 03/15/20 [History] Montelukast [Singulair] 20 mg PO DAILY 03/15/20 [History] predniSONE [Prednisone] 40 mg PO DAILY 5 Days #10 tablet 03/15/20 [Rx] Past Medical History HEENT History: Reports: Sinusitis, Other (See Below) Other HEENT History: wears glasses Cardiovascular History: Reports: None Respiratory History: Reports: Asthma Gastrointestinal History: Reports: Cholelithiasis Genitourinary History: Reports: None PULP [employer] History: Reports: Musculoskeletal History: Reports: None Neurological History: Reports: None Psychiatric History: Reports: None Endocrine/Metabolic History: Reports: Obesity/BMI 30+ Hematologic History: Reports: Blood Transfusion(s) Immunologic History: Reports: None Oncologic (Cancer) History: Reports: None Dermatologic History: Reports: None - Infectious Disease History Infectious Disease History: Reports: Chicken Pox - Past Surgical History Head Surgeries/Procedures: Reports: None HEENT Surgical History: Reports: Naso-Sinus Surgery, Polypectomy Cardiovascular Surgical History: Reports: None Respiratory Surgical History: Reports: None GI Surgical History: Reports: Appendectomy, Cholecystectomy, Other (See Below) Other GI Surgeries/Procedures: exploratory lap for ruptured appedicitis Female Surgical History: Reports: Section, Hysterectomy Endocrine Surgical History: Reports: None Neurological Surgical History: Reports: None Musculoskeletal Surgical History: Reports: None Oncologic Surgical History: Reports: None Dermatological Surgical History: Reports: None Social & Family History - Family History Family Medical History: No Pertinent Family History - Tobacco Use Tobacco Use Status *Q: Former Tobacco User Used Tobacco, but Quit: Yes Month/Year Tobacco Last Used: 03/04 - Caffeine Use Caffeine Use: Reports: Coffee Caffeine Use Comment: 1 cup per day - Recreational Drug Use Recreational Drug Use: No ED ROS GENERAL - Review of Systems Review Of Systems: See Below Free Text/Narrative/Comment: General: No fever. Eyes: No vision problems. ENT: Per HPI Neck: No neck stiffness. Respiratory: Per HPI Cardiac: No chest pain. Gastrointestinal: No nausea, vomiting or abdominal pain. Urinary: No dysuria. Musculoskeletal: Per HPI ED EXAM, GENERAL - Physical Exam Exam: See Below Free Text/Narrative:: General Appearance: No acute distress, appears comfortable Skin: No rash HEENT: Normocephalic/atraumatic, sclera anicteric, mucous membranes moist, posterior oropharyngeal erythema without exudate uvula midline no intraoral or perioral swelling no stridor no wheezing Neck: Normal range of motion Chest and Lungs: Bilateral breath sounds, clear to auscultation Cardiovascular: Regular rate and rhythm, no murmur Abdomen: Soft, non-tender Back: Normal Musculoskeletal: No edema or tenderness Neurologic: Awake, alert, no obvious deficits, moving all extremities Psychiatric: Appropriate, cooperative Course - Vital Signs Last Recorded V/S: Last Vital Signs Temp 96.7 F L 10/19/20 02:22 Pulse 85 10/19/20 02:22 Resp 20 10/19/20 02:22 BP 139/89 10/19/20 02:22 Pulse Ox 98 10/19/20 02:22 - Orders/Labs/Meds Orders: Active Orders 24 hr Category Date Time Status dexAMETHasone [Decadron] Med 10/19/20 03:17 Once 10 mg IVPUSH ONETIME ONE Labs: Laboratory Tests 10/19/20 10/19/20 Range/Units 02:19 02:19 SARS-CoV-2 RNA (SOTO) NEGATIVE (NEGATIVE) Group A Strep (PCR) NOT DETECTED (NOT DETECT) Departure - Departure Time of Disposition: 03:20 Disposition: Home, Self-Care 01 Condition: Good Clinical Impression: Viral pharyngitis - Discharge Information *PRESCRIPTION DRUG MONITORING PROGRAM REVIEWED*: Not Applicable *COPY OF PRESCRIPTION DRUG MONITORING REPORT IN PATIENT ROSAURA: Not Applicable Instructions: Pharyngitis Referrals: Taylor Jefferson DO [Primary Care Provider] - Additional Instructions: Your strep and Covid swabs were negative. Your symptoms are likely due to anot her non-Covid viral infection. The Decadron you were given is a long-acting steroid that should improve your sore throat. I encourage you to continue using your asthma medications as needed. If your symptoms worsen or you have any other new or concerning symptoms please call your doctor or return to the ER. Your symptoms should run their course over the next several days. The following information is given to patients seen in the emergency department who are being discharged to home. This information is to outline your options for follow-up care. We provide all patients seen in our emergency department with a follow-up referral. The need for follow-up, as well as the timing and circumstances, are variable depending upon the specifics of your emergency department visit. If you don't have a primary care physician on staff, we will provide you with a referral. We always advise you to contact your personal physician following an emergency department visit to inform them of the circumstance of the visit and for follow-up with them and/or the need for any referrals to a consulting specialist. The emergency department will also refer you to a specialist when appropriate. This referral assures that you have the opportunity for follow-up care with a specialist. All of these measure are taken in an effort to provide you with optimal care, which includes your follow-up. Under all circumstances we always encourage you to contact your private physician who remains a resource for coordinating your care. When calling for follow-up care, please make the office aware that this follow-up is from your recent emergency room visit. If for any reason you are refused follow-up, please contact the [facility] Emergency Department at and asked to speak to the emergency department charge nurse. Sepsis Event Note (ED) - Focused Exam Vital Signs: Vital Signs Temp Pulse Resp BP Pulse Ox 10/19/20 02:22 96.7 F L 85 20 139/89 98 - My Orders Last 24 Hours: My Active Orders 10/19/20 03:17 dexAMETHasone [Decadron] 10 mg IVPUSH ONETIME ONE - Assessment/Plan Last 24 Hours: My Active Orders 10/19/20 03:17 dexAMETHasone [Decadron] 10 mg IVPUSH ONETIME ONE Assessment:: 40-year-old female presenting with signs and symptoms most consistent with a viral pharyngitis strep and Covid negative. Work of breathing normal and no wheezing on initial exam so low concern for acute asthma exacerbation. Patient's vital signs are normal. Patient will be given 10 mg of Decadron for symptomatic treatment. Return precautions discussed and understood. No findings of deep space infection of the head or neck no findings of meningitis or encephalitis. Lungs clear no findings that would be concerning for pneumonia.
[2020-10-19 03:42] VITALS: BP 138/89; PULSE 96
== END 2020-10-19 03:42 | disposition home or self-care (01) ==
LOC: MW.ED 01:57
DX: J02.9 Acute pharyngitis, unspecified (principal); J45.909 Unspecified asthma, uncomplicated; E66.9 Obesity, unspecified; Z68.36 Body mass index [BMI] 36.0-36.9, adult; Z87.891 Personal history of nicotine dependence; Z88.0 Allergy status to penicillin; Z79.899 Other long term (current) drug therapy; Z20.822 Contact with and (suspected) exposure to COVID-19
CPT/HCPCS: 87635; 87651; 99284; J1100; U0002

== ENCOUNTER 2021-03-10 21:04 | Emergency (ER) | payer BC ==
[2021-03-10] MEDS ORDERED: Ketorolac 30 MG/ML SDV IM ONE (21:33)
[2021-03-10] MEDS ORDERED: Codeine/Promethazine 10-6.25 MG/5 ML Syrup 5 ML UD Syringe PO STA (21:42)
[2021-03-10 22:46] VITALS: BP 129/89; PULSE 84
== END 2021-03-10 22:47 | disposition home or self-care (01) ==
LOC: MW.ED 21:04
DX: U07.1 COVID-19 (principal); J45.909 Unspecified asthma, uncomplicated; E66.9 Obesity, unspecified; Z68.38 Body mass index [BMI] 38.0-38.9, adult; Z88.0 Allergy status to penicillin; Z79.899 Other long term (current) drug therapy
CPT/HCPCS: 99284; U0002

== ENCOUNTER 2021-04-13 13:56 | Emergency (ER) | payer BC ==
[2021-04-13 14:22] VITALS: BP 157/102; PULSE 99
== END 2021-04-13 15:10 | disposition home or self-care (01) ==
LOC: MW.ED 13:56
DX: K64.5 Perianal venous thrombosis (principal); J45.909 Unspecified asthma, uncomplicated; E66.9 Obesity, unspecified; Z68.36 Body mass index [BMI] 36.0-36.9, adult; Z88.0 Allergy status to penicillin; Z79.899 Other long term (current) drug therapy; Z90.49 Acquired absence of other specified parts of digestive tract; Z90.710 Acquired absence of both cervix and uterus
CPT/HCPCS: 99282

== ENCOUNTER 2021-05-27 11:13 | Emergency (ER) | payer BC ==
[2021-05-27] MEDS ORDERED: Morphine 4 MG/ML VIAL IVPUSH ONE (11:34)
[2021-05-27] MEDS ORDERED: Ondansetron 4 MG/2 ML SDV IVPUSH ONE (11:34)
[2021-05-27] MEDS ORDERED: Ketorolac 30 MG/ML SDV IVPUSH ONE (11:34)
[2021-05-27 12:46] LABS: BLOOD UREA NITROGEN,BUN 11 mg/dL (7.0-18.0); CARBON DIOXIDE,CO2 25.2 mmol/L (21.0-32.0); CHLORIDE,CL 105 mmol/L (98-107); GLUCOSE RANDOM 95 mg/dL (74-106); POTASSIUM,K 3.5 mmol/L (3.5-5.1); SODIUM,NA 139 mmol/L (136-145)
[2021-05-27] MEDS ORDERED: HYDROmorphone 1 MG/ML Syringe IVPUSH ONE (13:56)
[2021-05-27 16:39] VITALS: BP 137/83; PULSE 71
== END 2021-05-27 16:35 | disposition home or self-care (01) ==
LOC: MW.ED 11:13
DX: N83.202 Unspecified ovarian cyst, left side (principal); E66.9 Obesity, unspecified; Z68.33 Body mass index [BMI] 33.0-33.9, adult; Z88.0 Allergy status to penicillin; Z79.899 Other long term (current) drug therapy
CPT/HCPCS: 36415; 74176; 76857; 80053; 81001; 85025; 96374; 96375; 99284; J1170; J1885; J2270; J2405

== ENCOUNTER 2021-12-15 18:46 | Emergency (ER) | payer BC ==
[2021-12-15 19:14] VITALS: BP 132/80; PULSE 86
[2021-12-15] MEDS ORDERED: Ketorolac 30 MG/ML SDV IM ONE (19:49)
[2021-12-15] MEDS ORDERED: HYDROmorphone 1 MG/ML Syringe IM ONE (19:50)
[2021-12-15] MEDS ORDERED: Ondansetron 4 MG/2 ML SDV IVPUSH ONE (19:50)
[2021-12-15 20:02] LABS: CARBON DIOXIDE,CO2 28.8 mmol/L (21.0-32.0)
[2021-12-15] MEDS ORDERED: Ondansetron 4 MG Tab.DIS PO STA (20:17)
[2021-12-15] MEDS ORDERED: Ondansetron 4 MG Tab.DIS ONE (20:18)
[2021-12-15] MEDS ORDERED: HYDROmorphone 2 MG/ML Syringe IM ONE (21:18)
== END 2021-12-15 21:37 | disposition home or self-care (01) ==
LOC: MW.ED 18:46
DX: G89.18 Other acute postprocedural pain (principal); R10.30 Lower abdominal pain, unspecified; J45.909 Unspecified asthma, uncomplicated; E66.9 Obesity, unspecified; Z68.34 Body mass index [BMI] 34.0-34.9, adult; Z88.0 Allergy status to penicillin; Z90.722 Acquired absence of ovaries, bilateral
CPT/HCPCS: 36415; 76856; 80048; 85025; 96372; 99284; A9270; J1170; J1885

== ENCOUNTER 2021-12-20 14:44 | Emergency (ER) | payer BC ==
[2021-12-20 16:17] VITALS: BP 125/91; PULSE 90
== END 2021-12-20 16:14 | disposition home or self-care (01) ==
LOC: MW.ED 14:44
DX: N61.1 Abscess of the breast and nipple (principal); J45.909 Unspecified asthma, uncomplicated; E66.9 Obesity, unspecified; Z68.34 Body mass index [BMI] 34.0-34.9, adult; Z72.0 Tobacco use; Z86.16 Personal history of COVID-19; Z88.0 Allergy status to penicillin; Z79.899 Other long term (current) drug therapy
CPT/HCPCS: 10060; 99282

== ENCOUNTER 2021-12-22 11:07 | Emergency (ER) | payer BC ==
[2021-12-22] MEDS ORDERED: Sodium Chloride 0.9% 2.5 ML Syringe FLUSH PRN (11:41)
[2021-12-22] MEDS ORDERED: Sodium Chloride 0.9% 10 ML Syringe FLUSH PRN (11:41)
[2021-12-22] MEDS ORDERED: Sodium Chloride 0.9% 1,000 ML IV ONE (11:41)
[2021-12-22 12:11] LABS: CARBON DIOXIDE,CO2 24.5 mmol/L (21.0-32.0); POTASSIUM,K 3.3 mmol/L (3.5-5.1)
[2021-12-22] MEDS ORDERED: Potassium Chloride 20 MEQ Tab.ER PO ONE (12:46)
[2021-12-22] MEDS ORDERED: Lidocaine 1% 5 ML VIAL INJECT ONE (13:34)
[2021-12-22] MEDS ORDERED: Iopamidol 755 Mg/ML 75 ML Bottle IVPUSH ONE (14:10)
[2021-12-22] MEDS ORDERED: Iopamidol 755 Mg/ML 100 ML Bottle IVPUSH ONE (14:11)
[2021-12-22 14:37] VITALS: BP 125/79; PULSE 88
== END 2021-12-22 14:31 | disposition home or self-care (01) ==
LOC: MW.ED 11:07
DX: L02.211 Cutaneous abscess of abdominal wall (principal); N39.0 Urinary tract infection, site not specified; F17.210 Nicotine dependence, cigarettes, uncomplicated; E66.9 Obesity, unspecified; Z88.0 Allergy status to penicillin; Z86.16 Personal history of COVID-19; Z68.34 Body mass index [BMI] 34.0-34.9, adult
CPT/HCPCS: 10060; 36415; 71260; 80053; 81001; 85025; 96360; 99283; A9270; J3490; J7030; Q9967

== ENCOUNTER 2022-01-18 17:37 | Emergency (ER) | payer BC ==
[2022-01-18] MEDS ORDERED: Ondansetron 4 MG/2 ML SDV IVPUSH ONE (17:50)
[2022-01-18] MEDS ORDERED: Lactated Ringers 1,000 ML IV SCH (18:00)
[2022-01-18] MEDS ORDERED: Morphine 4 MG/ML Syringe IVPUSH ONE (18:19)
[2022-01-18 18:43] LABS: CARBON DIOXIDE,CO2 26.6 mmol/L (21.0-32.0); POTASSIUM,K 3.2 mmol/L (3.5-5.1)
[2022-01-18] MEDS ORDERED: Iopamidol 755 MG/ML 500 ML Multipack Bottle IVPUSH ONE (19:01)
[2022-01-18] MEDS ORDERED: HYDROmorphone 1 MG/ML Syringe IVPUSH STA (19:21)
[2022-01-18] MEDS ORDERED: HYDROmorphone 1 MG/ML Syringe ONE (19:21)
[2022-01-18] MEDS ORDERED: Tamsulosin 0.4 MG Cap.ER PO ONE (19:59)
[2022-01-18] MEDS ORDERED: Ketorolac 30 MG/ML SDV IVPUSH ONE (20:18)
[2022-01-18 22:02] VITALS: BP 129/94; PULSE 81
== END 2022-01-18 21:30 | disposition home or self-care (01) ==
LOC: MW.ED 17:37
DX: N13.2 Hydronephrosis with renal and ureteral calculous obstruction (principal); E66.9 Obesity, unspecified; Z88.0 Allergy status to penicillin; Z86.16 Personal history of COVID-19; Z68.33 Body mass index [BMI] 33.0-33.9, adult
CPT/HCPCS: 36415; 74178; 80053; 81001; 84703; 85025; 87086; 96361; 96374; 96375; 99284; A9270; J1170; J1885; J2270; J2405; J7120; Q9967; 87088; 87186

== ENCOUNTER 2022-01-22 19:31 | Emergency (ER) | payer BC ==
[2022-01-22] MEDS ORDERED: HYDROmorphone 1 MG/ML Syringe IVPUSH ONE ×2 (20:33→23:10)
[2022-01-22] MEDS ORDERED: Sodium Chloride 0.9% 1,000 ML IV ONE (20:33)
[2022-01-22] MEDS ORDERED: Sodium Chloride 0.9% 2.5 ML Syringe FLUSH PRN (20:33)
[2022-01-22] MEDS ORDERED: Ketorolac 30 MG/ML SDV IVPUSH ONE (20:33)
[2022-01-22] MEDS ORDERED: Ondansetron 4 MG/2 ML SDV IVPUSH ONE (20:33)
[2022-01-22] MEDS ORDERED: Sodium Chloride 0.9% 10 ML Syringe FLUSH PRN (20:33)
[2022-01-22 21:41] LABS: CARBON DIOXIDE,CO2 28.4 mmol/L (21.0-32.0); POTASSIUM,K 2.8 mmol/L (3.5-5.1)
[2022-01-22] MEDS ORDERED: Potassium Chloride 10% 20 MEQ/15 ML Soln 30 ML UD Cup PO ONE (23:51)
[2022-01-22] MEDS ORDERED: cefTRIAXone 1 GM in Sodium Chloride 0.9% 50 ML IV ONE (23:55)
[2022-01-23] MEDS ORDERED: HYDROmorphone 1 MG/ML Syringe IVPUSH ONE (01:39)
[2022-01-23 02:04] VITALS: BP 123/66; PULSE 77
== END 2022-01-23 02:03 | disposition home or self-care (01) ==
LOC: MW.ED 19:31
DX: N20.0 Calculus of kidney (principal); N39.0 Urinary tract infection, site not specified; E66.9 Obesity, unspecified; Z88.0 Allergy status to penicillin; Z68.32 Body mass index [BMI] 32.0-32.9, adult; Z86.16 Personal history of COVID-19
CPT/HCPCS: 36415; 74176; 80053; 81001; 83605; 85025; 87086; 96361; 96365; 96375; 96376; 99284; A9270; J0696; J1170; J1885; J2405; J3490; J7030; 87088; 87186

== ENCOUNTER 2022-04-23 11:58 | Emergency (ER) | payer BC ==
[2022-04-23 13:30] LABS: BLOOD UREA NITROGEN,BUN 14 mg/dL (7.0-18.0); CARBON DIOXIDE,CO2 27.3 mmol/L (21.0-32.0); CHLORIDE,CL 104 mmol/L (98-107); GLUCOSE RANDOM 98 mg/dL (74-106); POTASSIUM,K 3.2 mmol/L (3.5-5.1); SODIUM,NA 139 mmol/L (136-145)
[2022-04-23 13:33] LABS: ESTIMATED GFR 72 mL/min (>60)
== END 2022-04-23 14:59 | disposition left against medical advice (07) ==
LOC: MW.ED 11:58
DX: Z53.21 Procedure and treatment not carried out due to patient leaving prior to being seen by health care provider (principal)
CPT/HCPCS: 36415; 71045; 71045-26; 80053; 84484; 85025; 93005

== ENCOUNTER 2022-07-11 11:03 | Day surgery (SDC) | payer BC ==
[~2022-07-11 11:03] MED LIST changes: -Bupivacaine 0.5% 30 ML SDV ONE; +Propofol 200 MG/20 ML SDV ONE; -ceFAZolin 1 GM Vial ONE; -cefOXitin 2 GM in Premix Bag 1 BAG IV ONE
[2022-07-11] MEDS ORDERED: Glycopyrrolate 0.2 MG/ML SDV ONE (12:45)
[2022-07-11] MEDS ORDERED: Lactated Ringers 1,000 ML IV SCH (13:15)
[2022-07-11 14:06] VITALS: BP 116/64; PULSE 83
== END 2022-07-11 13:45 | disposition home or self-care (01) ==
LOC: MW.SDS 11:03
PROVIDERS: ATTEND Surgery
DX: K29.50 Unspecified chronic gastritis without bleeding (principal); K57.30 Diverticulosis of large intestine without perforation or abscess without bleeding; K20.90 Esophagitis, unspecified without bleeding; F41.9 Anxiety disorder, unspecified; F32.A Depression, unspecified; J45.909 Unspecified asthma, uncomplicated; E66.9 Obesity, unspecified; Z88.0 Allergy status to penicillin; Z79.899 Other long term (current) drug therapy; F17.210 Nicotine dependence, cigarettes, uncomplicated; Z68.26 Body mass index [BMI] 26.0-26.9, adult; Z80.0 Family history of malignant neoplasm of digestive organs; Z90.49 Acquired absence of other specified parts of digestive tract; Z87.59 Personal history of other complications of pregnancy, childbirth and the puerperium
CPT/HCPCS: 43239; J2704; J3490; J7120

== ENCOUNTER 2022-07-23 11:16 | Emergency (ER) | payer BC ==
[2022-07-23 11:35] VITALS: BP 118/79; PULSE 91
== END 2022-07-23 12:03 | disposition home or self-care (01) ==
LOC: MW.ED 11:16
DX: K64.4 Residual hemorrhoidal skin tags (principal); J45.909 Unspecified asthma, uncomplicated; F17.210 Nicotine dependence, cigarettes, uncomplicated; Z86.16 Personal history of COVID-19; Z88.0 Allergy status to penicillin; Z79.899 Other long term (current) drug therapy
CPT/HCPCS: 99282

== ENCOUNTER 2022-11-27 06:34 | Day surgery (SDC) | payer BC, OTHER ==
[~2022-11-27 06:34] MED LIST changes: -Propofol 200 MG/20 ML SDV ONE; +Sodium Chloride 0.9% 10 ML Syringe FLUSH PRN; +Sodium Chloride 0.9% 2.5 ML Syringe FLUSH PRN; +Sodium Chloride 0.9% 20 ML SDV IV PRN
[2022-11-27] MEDS ORDERED: Naloxone 0.4 MG/ML SDV IVPUSH PRN (07:24)
[2022-11-27] MEDS ORDERED: Ondansetron 4 MG/2 ML SDV IVPUSH PRN (07:24)
[2022-11-27] MEDS ORDERED: droPERidol 5 MG/2 ML SDV IVPUSH PRN (07:24)
[2022-11-27] MEDS ORDERED: Albuterol 0.083% 2.5 MG/3 ML Neb Soln NEB PRN (07:24)
[2022-11-27] MEDS ORDERED: Metoclopramide 10 MG/2 ML SDV IVPUSH PRN (07:24)
[2022-11-27] MEDS ORDERED: Morphine 2 MG/ML SYRINGE IVPUSH PRN (07:24)
[2022-11-27] MEDS ORDERED: fentaNYL 50 MCG/ML SDV IVPUSH PRN (07:24)
[2022-11-27] MEDS ORDERED: HYDROmorphone 1 MG/ML Syringe IVPUSH PRN (07:24)
[2022-11-27] MEDS ORDERED: Lidocaine 1% 20 ML MDV ONE (07:29)
[2022-11-27] MEDS ORDERED: Bupivacaine 0.5% 30 ML SDV ONE (07:29)
[2022-11-27] MEDS ORDERED: Dexmedetomidine 200 MCG/2 ML SDV ONE (07:31)
[2022-11-27] MEDS ORDERED: fentaNYL 100 MCG/2 ML SDV ONE (07:31)
[2022-11-27] MEDS ORDERED: propofoL 50 ML ONE ×2 (07:32→08:20)
[2022-11-27] MEDS ORDERED: Ondansetron 4 MG/2 ML SDV ONE (07:54)
[2022-11-27] MEDS ORDERED: Dexamethasone 4 MG/ML 5 ML MDV ONE (07:54)
[2022-11-27] MEDS ORDERED: Clindamycin Phosphate in D5W 600 MG in Premix Bag 1 BAG IV ONE ×2 (08:00)
[2022-11-27] MEDS ORDERED: ePHEDrine 50 MG/ML SDV ONE (08:02)
[2022-11-27] MEDS ORDERED: Magnesium Sulfate (4.06 MEQ/ML) 5 GM/10 ML SDV ONE (08:12)
[2022-11-27] MEDS ORDERED: Ketorolac 30 MG/ML SDV ONE (09:16)
[2022-11-27 10:04] VITALS: BP 101/58; PULSE 76
== END 2022-11-27 10:15 | disposition home or self-care (01) ==
LOC: MW.SDS 06:34
PROVIDERS: ATTEND Surgery
DX: L72.0 Epidermal cyst (principal); L98.7 Excessive and redundant skin and subcutaneous tissue; F41.9 Anxiety disorder, unspecified; J45.909 Unspecified asthma, uncomplicated; E66.9 Obesity, unspecified; F17.210 Nicotine dependence, cigarettes, uncomplicated; Z88.0 Allergy status to penicillin; Z79.899 Other long term (current) drug therapy; Z79.85 Long-term (current) use of injectable non-insulin antidiabetic drugs; Z68.23 Body mass index [BMI] 23.0-23.9, adult
CPT/HCPCS: 11400; 11401; 11402; 11421; J0131; J1100; J1885; J2405; J2704; J3010; J3475; J3490; J7120

== ENCOUNTER 2023-01-15 22:06 | Emergency (ER) | payer OTHER ==
[2023-01-15] MEDS ORDERED: Sodium Chloride 0.9% 2.5 ML Syringe FLUSH PRN (23:13)
[2023-01-15] MEDS ORDERED: Sodium Chloride 0.9% 10 ML Syringe FLUSH PRN (23:13)
[2023-01-15] MEDS ORDERED: Ketorolac 30 MG/ML SDV IM ONE (23:14)
[2023-01-15] MEDS ORDERED: Metoclopramide 10 MG/2 ML SDV IM ONE (23:14)
[2023-01-15] MEDS ORDERED: Sodium Chloride 0.9% 1,000 ML IV ONE (23:14)
[2023-01-15 23:29] LABS: BASOPHILS ABSOLUTE AUTO 0.05 K/uL (0.00-0.20); BASOPHILS PERCENT AUTO 0.5 % (0.0-1.0); EOSINOPHILS ABSOLUTE AUTO 0.25 K/uL (0.00-0.45); EOSINOPHILS PERCENT AUTO 2.5 % (0.0-6.0); HEMATOCRIT 36.2 % (37.0-47.0); HEMOGLOBIN 12.5 g/dL (12.0-16.0); IMMATURE GRAN ABSOLUTE AUTO 0.02 K/uL (0.00-0.05); IMMATURE GRAN PERCENT AUTO 0.2 % (0.0-0.4); LYMPHOCYTES ABSOLUTE AUTO 2.37 K/uL (1.00-4.80); LYMPHOCYTES PERCENT AUTO 23.9 % (24.0-44.0); MEAN CORPUSCULAR HEMOGLOBIN 32.3 pg (28.0-32.0); MEAN CORPUSCULAR HGB CONC 34.5 g/dL (32.0-36.0); MEAN CORPUSCULAR VOLUME 93.5 fL (83.0-99.0); MEAN PLATELET VOLUME 9.5 fL (9.4-12.3); MONOCYTES ABSOLUTE AUTO 0.76 K/uL (0.00-0.80); MONOCYTES PERCENT AUTO 7.7 % (0.0-8.0); NEUTROPHILS ABSOLUTE AUTO 6.47 K/uL (1.80-7.70); NEUTROPHILS PERCENT AUTO 65.2 % (41.0-71.0); PLATELET COUNT,PLT 359 K/uL (150-400); RED BLOOD CELL COUNT 3.87 M/uL (4.10-5.30); WHITE BLOOD CELL COUNT,WBC 9.92 K/uL (3.9-11.3)
[2023-01-15] MEDS ORDERED: Metoclopramide 10 MG/2 ML SDV IVPUSH STA (23:36)
[2023-01-15] MEDS ORDERED: Ketorolac 30 MG/ML SDV IVPUSH ONE (23:38)
[2023-01-15 23:59] LABS: A/G RATIO 0.8 (0.9-1.6); ALBUMIN 3.3 g/dL (3.4-5.0); BILIRUBIN TOTAL 0.7 mg/dL (0.2-1.0); EST CRCL DRUG DOSING (CG) 57.37 mL/min; POTASSIUM,K 3.6 mmol/L (3.5-5.1); PROTEIN TOTAL,TP 7.4 g/dL (6.4-8.2)
[2023-01-16] MEDS ORDERED: Iopamidol 755 Mg/ML 100 ML Bottle IVPUSH ONE (00:15)
[2023-01-16] MEDS ORDERED: Tetracaine HCl/PF 0.5% 4 ML Bottle EYEBOTH ONE (02:07)
[2023-01-16 02:55] VITALS: BP 137/85; PULSE 77
== END 2023-01-16 02:55 | disposition home or self-care (01) ==
LOC: MW.ED 22:06
DX: H57.89 Other specified disorders of eye and adnexa (principal); J45.909 Unspecified asthma, uncomplicated; Z90.49 Acquired absence of other specified parts of digestive tract; Z90.710 Acquired absence of both cervix and uterus; Z79.899 Other long term (current) drug therapy; Z88.0 Allergy status to penicillin
CPT/HCPCS: 36415; 70450; 70480; 70496; 70498; 80053; 85025; 96374; 96375; 99284; J1885; J2765; J3490; J7030; Q9967

== ENCOUNTER 2024-03-05 11:04 | Emergency (ER) | payer BC, OTHER ==
[2024-03-05 11:18] VITALS: BP 160/104; PULSE 109
[2024-03-05] MEDS: Sodium Chloride 0.9% 1,000 ML IV ONE (11:21)
[2024-03-05] MEDS: Ondansetron 4 MG/2 ML SDV IVPUSH ONE (11:23)
[2024-03-05 11:27] LABS: BASOPHILS ABSOLUTE AUTO 0.05 K/uL (0.00-0.20); BASOPHILS PERCENT AUTO 0.5 % (0.0-1.0); EOSINOPHILS ABSOLUTE AUTO 0.63 K/uL (0.00-0.45); EOSINOPHILS PERCENT AUTO 5.9 % (0.0-6.0); HEMATOCRIT 47.5 % (37.0-47.0); HEMOGLOBIN 16.5 g/dL (12.0-16.0); IMMATURE GRAN ABSOLUTE AUTO 0.02 K/uL (0.00-0.05); IMMATURE GRAN PERCENT AUTO 0.2 % (0.0-0.4); LYMPHOCYTES ABSOLUTE AUTO 3.53 K/uL (1.00-4.80); LYMPHOCYTES PERCENT AUTO 32.9 % (24.0-44.0); MEAN CORPUSCULAR HEMOGLOBIN 30.7 pg (28.0-32.0); MEAN CORPUSCULAR HGB CONC 34.7 g/dL (32.0-36.0); MEAN CORPUSCULAR VOLUME 88.5 fL (83.0-99.0); MEAN PLATELET VOLUME 9.6 fL (9.4-12.3); MONOCYTES ABSOLUTE AUTO 0.87 K/uL (0.00-0.80); MONOCYTES PERCENT AUTO 8.1 % (0.0-8.0); NEUTROPHILS ABSOLUTE AUTO 5.63 K/uL (1.80-7.70); NEUTROPHILS PERCENT AUTO 52.4 % (41.0-71.0); PLATELET COUNT,PLT 368 K/uL (150-400); RED BLOOD CELL COUNT 5.37 M/uL (4.10-5.30); WHITE BLOOD CELL COUNT,WBC 10.73 K/uL (3.9-11.3)
[2024-03-05 11:48] LABS: A/G RATIO 0.9 (0.9-1.6); BILIRUBIN TOTAL 1.1 mg/dL (0.2-1.0); CALCIUM 9.8 mg/dL (8.5-10.1); CARBON DIOXIDE,CO2 30.8 mmol/L (21.0-32.0); CREATININE 1.5 mg/dL (0.6-1.0); EST CRCL DRUG DOSING (CG) 37.85 mL/min; POTASSIUM,K 3.4 mmol/L (3.5-5.1); PROTEIN TOTAL,TP 8.7 g/dL (6.4-8.2)
[2024-03-05 12:05] LABS: APPEARANCE,URINE CLOUDY; BILIRUBIN,URINE NEGATIVE (NEGATIVE); COLOR,URINE YELLOW; GLUCOSE,URINE NEGATIVE (NEGATIVE); KETONES,URINE NEGATIVE (NEGATIVE); LEUKOCYTE ESTERASE,URINE NEGATIVE (NEGATIVE); NITRITE,URINE NEGATIVE (NEGATIVE); OCCULT BLOOD,URINE SMALL (NEGATIVE); PH,URINE 6.5 (5.0-8.0); PROTEIN,URINE NEGATIVE (NEGATIVE); UROBILINOGEN,URINE 0.2 EU/dL (<2.0)
[2024-03-05 12:13] LABS: BACTERIA,URINE FEW (NEGATIVE); EPITHELIAL CELLS,URINE FEW (NONE-FEW); MUCUS,URINE LIGHT (NONE-MOD); RBC,URINE NONE SEEN (0-2/HPF); WBC,URINE 0-1 (0-5/HPF)
[2024-03-05 12:15] LABS: AMORPHOUS SEDIMENT,URINE LIGHT (NEGATIVE)
[2024-03-05] MEDS: Promethazine 25 MG/ML SDV IM ONE (12:16)
== END 2024-03-05 13:19 | disposition home or self-care (01) ==
LOC: MW.ED 11:04
DX: K29.70 Gastritis, unspecified, without bleeding (principal); J45.909 Unspecified asthma, uncomplicated; Z75.8 Other problems related to medical facilities and other health care; Z88.0 Allergy status to penicillin; Z79.899 Other long term (current) drug therapy; Z86.16 Personal history of COVID-19; Z90.49 Acquired absence of other specified parts of digestive tract; Z90.710 Acquired absence of both cervix and uterus
CPT/HCPCS: 36415; 80053; 81001; 83690; 85025; 87428; 96372; 96374; 99284; J2405; J2550; J7030

== ENCOUNTER 2025-01-02 18:27 | Emergency (ER) | payer BC ==
[2025-01-02] MEDS: Budesonide 0.5 MG/2 ML Neb Susp NEB ONE (19:10)
[2025-01-02 19:23] LABS: MEAN PLATELET VOLUME 10.0 fL (9.4-12.3); NRBC ABSOLUTE 0.00 K/uL (0.00-0.02); NRBC PERCENT 0.0 /100WBC (0.0-0.2); PLATELET COUNT,PLT 289 K/uL (150-400); RED BLOOD CELL COUNT 4.46 M/uL (4.10-5.30); WHITE BLOOD CELL COUNT,WBC 10.64 K/uL (3.9-11.3)
[2025-01-02 19:47] LABS: BASOPHILS ABSOLUTE MAN 0.11 K/uL (0.00-0.20); BASOPHILS PERCENT MAN 1 % (0-1); EOSINOPHILS ABSOLUTE MAN 2.13 K/uL (0.00-0.45); EOSINOPHILS PERCENT MAN 20 % (0-6); LYMPHOCYTES ABSOLUTE MAN 4.26 K/uL (1.00-4.80); LYMPHOCYTES PERCENT MAN 40 % (24-44); MONOCYTES ABSOLUTE MAN 0.32 K/uL (0.00-0.80); MONOCYTES PERCENT MAN 3 % (0-8); SEG NEUTROPHILS ABSOLUTE MAN 3.83 K/uL (1.80-7.70); SEG NEUTROPHILS PERCENT MAN 36 % (41-71)
[2025-01-02 20:06] LABS: A/G RATIO 0.9 (0.9-1.6); ALANINE AMINOTRANSFERASE,ALT 52.0 IU/L (14-63); ASPARTATE AMNIOTRANSFERASE,AST 24.0 IU/L (15-37); BILIRUBIN TOTAL 0.5 mg/dL (0.2-1.0); BLOOD UREA NITROGEN,BUN 11.0 mg/dL (7.0-18.0); CARBON DIOXIDE,CO2 26.6 mmol/L (21.0-32.0); CHLORIDE,CL 103.0 mmol/L (98-107); CREATININE 1.0 mg/dL (0.6-1.0); EST CRCL DRUG DOSING (CG) 56.19 mL/min; GLUCOSE RANDOM 85.0 mg/dL (74-106); POTASSIUM,K 3.6 mmol/L (3.5-5.1); PROTEIN TOTAL,TP 7.7 g/dL (6.4-8.2); SODIUM,NA 139.0 mmol/L (136-145)
[2025-01-02 20:11] LABS: ESTIMATED GFR 71.0 mL/min (>60)
[2025-01-02 21:24] VITALS: BP 142/74; PULSE 87
== END 2025-01-02 21:23 | disposition home or self-care (01) ==
LOC: MW.ED 18:27
DX: J01.80 Other acute sinusitis (principal); J45.909 Unspecified asthma, uncomplicated; F17.200 Nicotine dependence, unspecified, uncomplicated; Z88.0 Allergy status to penicillin; Z79.899 Other long term (current) drug therapy; Z79.84 Long term (current) use of oral hypoglycemic drugs; Z90.710 Acquired absence of both cervix and uterus
CPT/HCPCS: 36415; 80053; 84484; 85025; 93005; 99284; A9270; J7620